=== PATIENT | male | born 1985 | race African-American/Black ===

== ENCOUNTER 2016-06-14 00:30 | Emergency (ER) | payer MEDICAID, SELFPAY ==
[~2016-06-14] VITALS: Ht 180.3 cm; Wt 70.3 kg
[2016-06-14] MEDS ORDERED: predniSONE 50 MG TAB PO ONE (01:30)
[2016-06-14] MEDS ORDERED: predniSONE 20 MG TAB PO ONE (01:30)
[2016-06-14] MEDS ORDERED: NAPROXEN 250 MG TAB PO ONE (01:30)
[2016-06-14] MEDS ORDERED: PRED20TA PO (01:32)
[2016-06-14] MEDS ORDERED: MOBI7.5T10 PO (01:33)
[2016-06-14] MEDS ORDERED: ZANA4TAB PO (02:29)
[2016-06-14] MEDS ORDERED: NORCO 5/325MG TABLET (BULK FOR ED) PO ONE (02:30)
[2016-06-14 02:40] VITALS: BP 121/68
--- NOTE | 2016-06-14 07:33 | REP ---
Clinical: Trauma . Technique: Internal rotation, external rotation, and Y view right shoulder . Findings: No acute fracture or dislocation. The acromioclavicular and glenohumeral joints are intact. No periarticular calcifications or degenerative changes are appreciated. Sub acromial space is normal. Surrounding soft tissues are unremarkable. Impression: Normal right shoulder radiographs. Signed by Nikhil Hawthorne MD 06/14/2016 07:25 A
--- NOTE | 2016-06-14 07:51 | REP ---
Clinical: Trauma . Technique: AP, lateral, bilateral oblique, and coned-down views. Findings: Alignment and lordosis is maintained. The vertebral bodies including transverse process and spinous processes are intact and normal. There is no evidence for acute fracture / compression injury or subluxation. No evidence for spondylolysis or spondylolisthesis. No significant degenerative change is noted. Impression: Normal lumbosacral spine radiograph series. Signed by Nikhil Hawthorne MD 06/14/2016 07:42 A
== END 2016-06-14 02:51 | disposition home or self-care (01) ==
LOC: M ED 01:39
DX: M54.5 Low back pain (principal); M25.511 Pain in right shoulder

== ENCOUNTER 2016-07-25 19:45 | Emergency (ER) | payer MEDICAID, OTHER, SELFPAY ==
[~2016-07-25] VITALS: Ht 180.3 cm; Wt 70.3 kg
[~2016-07-25 19:45] MED LIST: MOBI7.5T10 PO; PRED20TA PO; ZANA4TAB PO
[2016-07-25] MEDS ORDERED: FLUORESCEIN OPHTH 1 MG STRIP As Ordered ONE (21:39)
[2016-07-25] MEDS ORDERED: FLUORESCEIN OPHTH 1 MG STRIP OS ONE (21:45)
[2016-07-25 21:56] VITALS: BP 124/72
[2016-07-25] MEDS ORDERED: TOBRAMYCIN 0.3% OPHTH SOLN 5 ML OS ONE (22:00)
== END 2016-07-25 22:00 | disposition home or self-care (01) ==
LOC: M ED 21:43
DX: S05.02XA Injury of conjunctiva and corneal abrasion without foreign body, left eye, initial encounter (principal); X58.XXXA Exposure to other specified factors, initial encounter; Y92.89 Other specified places as the place of occurrence of the external cause; Y93.89 Activity, other specified; Y99.9 Unspecified external cause status

== ENCOUNTER 2016-08-07 16:38 | Emergency (ER) | payer MEDICAID, OTHER, SELFPAY ==
[~2016-08-07] VITALS: Ht 180.3 cm; Wt 70.3 kg
[2016-08-07] MEDS ORDERED: FLUORESCEIN OPHTH 1 MG STRIP OS ONE (19:45)
[2016-08-07] MEDS ORDERED: TETRACAINE 0.5% OPHTH SOLN 4ML OS ONE (19:45)
[2016-08-07] MEDS ORDERED: KETO5OPD OS (19:55)
[2016-08-07] MEDS ORDERED: KETOROLAC 0.5% OPHTH SOLN OS ONE (20:00)
[2016-08-07 20:02] VITALS: BP 120/68
== END 2016-08-07 20:06 | disposition home or self-care (01) ==
LOC: M ED 18:14
DX: H57.12 Ocular pain, left eye (principal); F17.200 Nicotine dependence, unspecified, uncomplicated

== ENCOUNTER 2017-03-09 16:29 | Emergency (ER) | payer OTHER, SELFPAY ==
[~2017-03-09] VITALS: Ht 180.3 cm; Wt 68.2 kg
[~2017-03-09 16:29] MED LIST changes: +KETO5OPD OS; +MOBI4TAB PO; -MOBI7.5T10 PO
[2017-03-09] MEDS ORDERED: IPRATROPIUM 0.5MG/ALBUTEROL 2.5MG INH SOL UD 3ML (DUONEB)(J7620) NEB ONE (17:00)
--- NOTE | 2017-03-09 17:13 | ECGEPIP ---
Stationary ECG Study [facility] - ED Test Date: 2017-03-09 Pat Name: SAMSON SURESH Department: Room: - Gender: M [employer]: megha : 1985 Requested By: JANEL Segovia Order Number: [id number] Reading MD: Debbie Villeda Measurements Intervals Waldo Rate: 63 P: 66 MS: 127 QRS: -12 QRSD: 89 T: 44 QT: 375 QTc: 386 Interpretive Statements SINUS RHYTHM PROBABLE EARLY REPOLARIZATION NO PRIOR FOR COMPARISON Electronically Signed On 03-09-2017 17:13:35 EST by Debbie Villeda
[2017-03-09 19:49] LABS: BASO % 0.4 % (0.0-1.0); EOS # 0.1 10^3/uL (0.0-0.50); EOS % 1.6 % (0.0-3.0); IMMATURE GRANULOCYTE % 0.4 % (0-0); LYMPH # 2.2 10^3/uL (1.5-4.5); LYMPH % 38.9 % (24.0-44.0); MEAN CORPUSCULAR HEMOGLOBIN 28.7 pg (27.0-33.0); MEAN CORPUSCULAR HGB CONC 32.3 g/dl (32.0-36.5); MEAN CORPUSCULAR VOLUME 88.9 fl (80.0-96.0); MONO # 0.5 10^3/uL (0.0-0.8); MONO % 8.7 % (0.0-5.0); NEUTROPHILS # 2.8 10^3/uL (1.8-7.7); PLATELET COUNT, AUTOMATED 280 10^3/uL (150-450); RED CELL DISTRIBUTION WIDTH 12.7 % (11.5-14.5); WHITE BLOOD COUNT 5.7 10^3/uL (4.0-10.0)
[2017-03-09 19:53] LABS: ANION GAP 8 MEQ/L (8-16); BLOOD UREA NITROGEN 11 MG/DL (7-18); CALCIUM LEVEL 8.8 MG/DL (8.5-10.1); CARBON DIOXIDE LEVEL 25 MEQ/L (21-32); CHLORIDE LEVEL 107 MEQ/L (98-107); CREATININE FOR GFR 0.95 MG/DL (0.70-1.30); GLOMERULAR FILTRATION RATE > 60.0 (>60); GLUCOSE, FASTING 89 MG/DL (70-105); POTASSIUM SERUM 4.3 MEQ/L (3.5-5.1); SODIUM LEVEL 140 MEQ/L (136-145)
[2017-03-09] MEDS ORDERED: GI COCKTAIL 50ML BTL(HYOSCYAMINE/MAALOX/LIDOCAINE VISCOUS)(1:3:1) PO ONE (20:00)
[2017-03-09] MEDS ORDERED: ISOVUE-370 76% 100ML VIAL (Q9967) As Ordered ONE (20:05)
[2017-03-09 21:16] VITALS: BP 118/87
--- NOTE | 2017-03-13 09:10 | REP ---
Clinical: Acute chest pain. Technique: Axial contrast enhanced images from the thoracic inlet to the upper abdomen using 100 ml Isovue 370 intravenous contrast material with coronal and sagittal re-formations. Findings: Satisfactory enhancement of the pulmonary vasculature is achieved and no filling defects are identified to suggest pulmonary embolus. Thoracic aorta is normal caliber without aneurysm or dissection. Heart and pericardium are normal. Bilateral lung bullard are well aerated and clear without acute pulmonary parenchymal consolidation or atelectasis. No nodule or mass lesion. No pleural effusion/reaction. No pneumothorax. No adenopathy. Impression: No evidence for pulmonary embolus. No acute pleuroparenchymal or mediastinal process. Signed by Nikhil Hawthorne MD 03/09/2017 08:22 P
== END 2017-03-09 21:46 | disposition home or self-care (01) ==
LOC: M ED 16:29
DX: R07.9 Chest pain, unspecified (principal); R06.02 Shortness of breath; M54.9 Dorsalgia, unspecified; Z82.49 Family history of ischemic heart disease and other diseases of the circulatory system; F17.210 Nicotine dependence, cigarettes, uncomplicated; F12.20 Cannabis dependence, uncomplicated
CPT/HCPCS: 36415; 71275; 80048; 82550; 82553; 85025; 93005; 93041; 94640; 94760; 99285; Q9967

== ENCOUNTER 2017-07-18 06:29 | Emergency (ER) | payer MEDICAID, OTHER ==
[2017-07-18] MEDS: AUGMENTIN 875 MG TAB PO (07:33)
[2017-07-18] MEDS: IBUPROFEN 800 MG TAB PO (07:34)
== END 2017-07-18 07:44 | disposition home or self-care (01) ==
LOC: M ED 06:29
DX: J02.9 Acute pharyngitis, unspecified (principal)
CPT/HCPCS: 87880

== ENCOUNTER → 2018-01-04 | Outpatient (CLI) | payer OTHER, MEDICAID ==
[2018-01-04 16:23] LABS: BASO % 0.5 % (0.0-1.0); EOS % 0.6 % (0.0-3.0); HEMATOCRIT 45.8 % (42.0-52.0); HEMOGLOBIN 14.8 g/dl (13.5-17.5); IMMATURE GRANULOCYTE % 0.3 % (0-3.0); LYMPH # 1.6 10^3/uL (1.5-4.5); LYMPH % 23.7 % (24.0-44.0); MEAN CORPUSCULAR HEMOGLOBIN 28.7 pg (27.0-33.0); MEAN CORPUSCULAR HGB CONC 32.3 g/dl (32.0-36.5); MEAN CORPUSCULAR VOLUME 88.9 fl (80.0-96.0); MONO # 0.6 10^3/uL (0.0-0.8); MONO % 8.3 % (0.0-5.0); NEUTROPHILS # 4.4 10^3/uL (1.8-7.7); NEUTROPHILS % 66.6 % (36.0-66.0); PLATELET COUNT, AUTOMATED 305 10^3/uL (150-450); RED BLOOD COUNT 5.15 10^6/uL (4.30-6.10); RED CELL DISTRIBUTION WIDTH 13.5 % (11.5-14.5); WHITE BLOOD COUNT 6.7 10^3/uL (4.0-10.0)
[2018-01-04 16:34] LABS: ALBUMIN 4.4 GM/DL (3.2-5.2); ALBUMIN/GLOBULIN RATIO 1.38 (1.00-1.93); ALKALINE PHOSPHATASE 91 U/L (45-117); ALT/SGPT 48 U/L (12-78); ANION GAP 4 MEQ/L (8-16); AST/SGOT 38 U/L (7-37); BILIRUBIN,DIRECT < 0.1 MG/DL (0.0-0.2); BILIRUBIN,TOTAL 0.2 MG/DL (0.2-1.0); BLOOD UREA NITROGEN 12 MG/DL (7-18); CALCIUM LEVEL 9.5 MG/DL (8.5-10.1); CARBON DIOXIDE LEVEL 29 MEQ/L (21-32); CHLORIDE LEVEL 108 MEQ/L (98-107); CREATININE FOR GFR 0.87 MG/DL (0.70-1.30); GLOMERULAR FILTRATION RATE > 60.0 (>60); GLUCOSE, FASTING 100 MG/DL (70-100); PHOSPHORUS LEVEL 2.9 MG/DL (2.5-4.9); POTASSIUM SERUM 5.1 MEQ/L (3.5-5.1); SODIUM LEVEL 141 MEQ/L (136-145); TOTAL PROTEIN 7.6 GM/DL (6.4-8.2)
[2018-01-04 17:22] LABS: ERYTHROCYTE SEDIMENTATION RATE 2 mm/hr (0-15)
[2018-01-04 18:05] LABS: CHLAMYDIA DNA AMPLIFICATION NEGATIVE (NEGATIVE); GC DNA AMPLIFICATION NEGATIVE (NEGATIVE)
== END ==
LOC: M WUC 11:50
DX: R31.9 Hematuria, unspecified (principal); R10.815 Periumbilic abdominal tenderness
CPT/HCPCS: 80076

== ENCOUNTER → 2018-01-21 | Outpatient (REF) | payer OTHER ==
[2018-01-21 16:38] LABS: APPEARANCE, URINE CLEAR (CLEAR); BACTERIA, URINE AUTO NEGATIVE (NEGATIVE); BILIRUBIN, URINE AUTO NEGATIVE (NEGATIVE); BLOOD, URINE BLOOD NEGATIVE (NEGATIVE); COLOR, URINE YELLOW (YELLOW); GLUCOSE, URINE (UA) AUTO NEGATIVE (NEGATIVE); KETONE, URINE AUTO NEGATIVE (NEGATIVE); LEUKOCYTE ESTERASE, URINE AUTO NEGATIVE (NEGATIVE); NITRITE, URINE AUTO NEGATIVE (NEGATIVE); PROTEIN, URINE AUTO NEGATIVE (NEGATIVE); RBC, URINE AUTO 2 /HPF (0-3); SPECIFIC GRAVITY URINE AUTO 1.013 (1.002-1.035); SQUAMOUS EPITHELIAL CELL UR AU 0 /HPF (0-6); UROBILINOGEN, URINE AUTO 0.2 mg/dL (0.0-2.0); WBC, URINE AUTO 0 /HPF (0-3)
== END ==
LOC: M SFHCPLAZ 15:38
DX: R31.0 Gross hematuria (principal)

== ENCOUNTER 2018-08-24 23:17 | Emergency (ER) | payer MEDICAID, OTHER, SELFPAY ==
[~2018-08-24] VITALS: Ht 180.3 cm; Wt 79.5 kg
[~2018-08-24 23:17] MED LIST changes: +AUGM875T28 PO; +KETO0.5S2 OS; -KETO5OPD OS
[2018-08-24] MEDS ORDERED: NS 1,000 ML IV ONE (23:45)
[2018-08-25] MEDS ORDERED: KETOROLAC 30 MG/ML VIAL (J1885) IV ONE ×2 (00:15→02:15)
[2018-08-25 00:34] LABS: BASO % 0.3 % (0.0-1.0); EOS # 0.1 10^3/uL (0.0-0.50); EOS % 1.6 % (0.0-3.0); HEMATOCRIT 43.8 % (42.0-52.0); HEMOGLOBIN 14.3 g/dl (13.5-17.5); LYMPH # 2.8 10^3/uL (1.5-4.5); LYMPH % 32.6 % (24.0-44.0); MEAN CORPUSCULAR HEMOGLOBIN 28.7 pg (27.0-33.0); MEAN CORPUSCULAR HGB CONC 32.6 g/dl (32.0-36.5); MEAN CORPUSCULAR VOLUME 87.8 fl (80.0-96.0); MONO # 0.6 10^3/uL (0.0-0.8); MONO % 7.2 % (0.0-5.0); NEUTROPHILS % 58.1 % (36.0-66.0); PLATELET COUNT, AUTOMATED 306 10^3/uL (150-450); RED BLOOD COUNT 4.99 10^6/uL (4.30-6.10); WHITE BLOOD COUNT 8.7 10^3/uL (4.0-10.0)
[2018-08-25 00:48] LABS: ALT/SGPT 35 U/L (12-78); BILIRUBIN,DIRECT < 0.1 MG/DL (0.0-0.2); BILIRUBIN,TOTAL 0.1 MG/DL (0.2-1.0); BLOOD UREA NITROGEN 15 MG/DL (7-18); CALCIUM LEVEL 8.7 MG/DL (8.5-10.1); CARBON DIOXIDE LEVEL 27 MEQ/L (21-32); CHLORIDE LEVEL 107 MEQ/L (98-107); CREATININE FOR GFR 1.08 MG/DL (0.70-1.30); GLOMERULAR FILTRATION RATE > 60.0 (>60); GLUCOSE, FASTING 100 MG/DL (70-100); LIPASE 1270 U/L (73-393); POTASSIUM SERUM 4.2 MEQ/L (3.5-5.1); SODIUM LEVEL 140 MEQ/L (136-145); TOTAL PROTEIN 7.6 GM/DL (6.4-8.2)
[2018-08-25 01:49] VITALS: BP 110/54
--- NOTE | 2018-08-25 01:58 | REPVR ---
EXAM: CT Abdomen and Pelvis Without Contrast EXAM DATE/TIME: 08/25/2018 12:16 AM CLINICAL HISTORY: 33 years old, male; Left flank pain. TECHNIQUE: Imaging protocol: Axial computed tomography images of the abdomen and pelvis without contrast. Coronal and sagittal reformatted images were created and reviewed. Radiation optimization: All CT scans at this facility use at least one of these dose optimization techniques: automated exposure control; mA and/or kV adjustment per patient size (includes targeted exams where dose is matched to clinical indication); or iterative reconstruction. COMPARISON: CR Spine. Lumbosacral, complete 06/14/2016 1:42 AM FINDINGS: Lungs: The imaged lung bases are clear. Heart: No cardiomegaly or pericardial effusion is noted. ABDOMEN: Liver: Unremarkable. No liver lesion is seen. The contour of the liver is smooth. No hepatomegaly is noted. Gallbladder and bile ducts: No calcified gallstones are seen. No gallbladder wall thickening, pericholecystic fluid, or pericholecystic inflammatory changes are identified. No dilation of the intrahepatic or extrahepatic bile ducts is noted. Pancreas: Unremarkable. No ductal dilation. Spleen: Unremarkable. No splenomegaly. Adrenals: Normal. No mass. Kidneys and ureters: The kidneys are unremarkable. No renal lesion is identified. No calculi are seen in the kidneys or ureters. There is no hydronephrosis or hydroureter. Stomach and bowel: There is no evidence for a bowel obstruction, diverticulosis, diverticulitis, colitis, pneumatosis intestinalis, intussusception, volvulus, or perforated viscus. Appendix: The retrocecal appendix is normal. There is no evidence for appendicitis. PELVIS: Bladder: The partially distended urinary bladder is unremarkable. No stones or masses are seen in the bladder. Reproductive: The prostate gland and seminal vesicles are unremarkable. ABDOMEN and PELVIS: Intraperitoneal space: Normal. No free air. No fluid collection. Bones/joints: There is no fracture or dislocation. There is a 9 mm radiolucent lesion with a sclerotic rim in the right iliac bone adjacent to the right sacroiliac joint, which has a benign appearance and is stable compared to the prior lumbar spine x-rays on 06/14/2016. Incidental note is also made of a small bone island in the right side of the pubic symphysis. There is a lumbosacral transitional vertebra that will be designated as L5 above the last well-defined intervertebral disc, and there is broadening of the left transverse process of the lumbosacral transitional vertebra, which forms a pseudoarticulation with the left side of the sacrum (Castellvi type IIa lumbosacral transitional vertebra) that stabilizes the level below the lumbosacral transitional vertebra and leads to the propensity for increased mobility and degenerative disc disease at the level above the lumbosacral transitional vertebra (Bertolotti's syndrome). At the L4-L5 level, there is a left paracentral protrusion that potentially posteriorly displaces the left L5 nerve in the left lateral recess and causes severe stenosis of the left lateral recess. Soft tissues: There is a tiny fat containing umbilical hernia. Vasculature: No abdominal aortic aneurysm. Lymph nodes: Normal. No enlarged lymph nodes. IMPRESSION: 1. L4-L5: Left paracentral protrusion that potentially posteriorly displaces the left L5 nerve in the left lateral recess and causes severe stenosis of the left lateral recess. 2. 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 3. No stones in the kidneys, ureters, or urinary bladder. No hydronephrosis or hydroureter. Electronically signed by: Orlando Urias On 08/25/2018 01:57:35 AM
[2018-08-25] MEDS ORDERED: TRAM50TA2 PO (02:08)
[2018-08-25] MEDS ORDERED: traMADol 50 MG TAB PO ONE (02:15)
--- NOTE | 2018-08-27 12:42 | ED PDOC ---
Post-Departure Follow-Up dr payne faxed formal report of ct abd/p for fu Gali Dias MD Aug 27, 2018 12:42
== END 2018-08-25 02:27 | disposition home or self-care (01) ==
LOC: M ED 23:17
DX: K85.90 Acute pancreatitis without necrosis or infection, unspecified (principal); M48.061 Spinal stenosis, lumbar region without neurogenic claudication
CPT/HCPCS: 74176; 80048; 80076; 81001; 83690; 85025; 96374; 99284; J1885

== ENCOUNTER 2018-08-30 21:07 | Emergency (ER) | payer MEDICAID, OTHER, SELFPAY ==
[~2018-08-30] VITALS: Ht 180.3 cm; Wt 79.5 kg
[~2018-08-30 21:07] MED LIST changes: +TRAM50TA2 PO
[2018-08-30 23:37] LABS: BASO % 0.4 % (0.0-1.0); EOS # 0.1 10^3/uL (0.0-0.50); EOS % 1.2 % (0.0-3.0); HEMATOCRIT 45.1 % (42.0-52.0); HEMOGLOBIN 14.8 g/dl (13.5-17.5); LYMPH # 3.1 10^3/uL (1.5-4.5); LYMPH % 33.3 % (24.0-44.0); MEAN CORPUSCULAR HEMOGLOBIN 29.1 pg (27.0-33.0); MEAN CORPUSCULAR HGB CONC 32.8 g/dl (32.0-36.5); MEAN CORPUSCULAR VOLUME 88.6 fl (80.0-96.0); MONO # 0.7 10^3/uL (0.0-0.8); MONO % 7.8 % (0.0-5.0); NEUTROPHILS # 5.3 10^3/uL (1.8-7.7); PLATELET COUNT, AUTOMATED 327 10^3/uL (150-450); RED BLOOD COUNT 5.09 10^6/uL (4.30-6.10); WHITE BLOOD COUNT 9.3 10^3/uL (4.0-10.0)
[2018-08-30 23:53] LABS: ALT/SGPT 27 U/L (12-78); AMYLASE 217 U/L (25-115); BILIRUBIN,DIRECT < 0.1 MG/DL (0.0-0.2); BILIRUBIN,TOTAL 0.2 MG/DL (0.2-1.0); BLOOD UREA NITROGEN 12 MG/DL (7-18); CALCIUM LEVEL 8.9 MG/DL (8.5-10.1); CARBON DIOXIDE LEVEL 30 MEQ/L (21-32); CHLORIDE LEVEL 104 MEQ/L (98-107); CREATININE FOR GFR 1.02 MG/DL (0.70-1.30); GLOMERULAR FILTRATION RATE > 60.0 (>60); GLUCOSE, FASTING 85 MG/DL (70-100); LIPASE 876 U/L (73-393); POTASSIUM SERUM 4.1 MEQ/L (3.5-5.1); SODIUM LEVEL 138 MEQ/L (136-145); TOTAL PROTEIN 7.5 GM/DL (6.4-8.2)
[2018-08-30 23:59] VITALS: BP 122/89
[2018-08-31] MEDS ORDERED: METHOCARBAMOL 750 MG TAB PO ONE (00:15)
[2018-08-31] MEDS ORDERED: KETOROLAC 60 MG/2 ML VIAL (J1885) IM ONE (00:15)
[2018-08-31] MEDS ORDERED: ROBA500T PO (00:25)
[2018-08-31] MEDS ORDERED: MEDR4TAB PO (00:25)
== END 2018-08-31 00:31 | disposition home or self-care (01) ==
LOC: M ED 21:07
DX: M54.42 Lumbago with sciatica, left side (principal); R74.8 Abnormal levels of other serum enzymes; Z79.891 Long term (current) use of opiate analgesic
CPT/HCPCS: 36415; 80048; 80076; 82150; 83690; 85025; 96372; 99283; J1885

== ENCOUNTER 2018-09-04 18:32 | Emergency (ER) | payer MEDICAID ==
[~2018-09-04] VITALS: Ht 180.3 cm; Wt 79.5 kg
[~2018-09-04 18:32] MED LIST changes: +MEDR4TAB PO; +ROBA500T PO
[2018-09-04] MEDS ORDERED: NS 1,000 ML IV ONE (19:45)
[2018-09-04] MEDS ORDERED: KETOROLAC 30 MG/ML VIAL (J1885) IV ONE (19:45)
[2018-09-04 20:17] LABS: BASO % 0.3 % (0.0-1.0); EOS # 0.1 10^3/uL (0.0-0.50); EOS % 0.6 % (0.0-3.0); HEMATOCRIT 45.1 % (42.0-52.0); HEMOGLOBIN 14.8 g/dl (13.5-17.5); LYMPH # 2.6 10^3/uL (1.5-4.5); MEAN CORPUSCULAR HEMOGLOBIN 28.5 pg (27.0-33.0); MEAN CORPUSCULAR HGB CONC 32.8 g/dl (32.0-36.5); MEAN CORPUSCULAR VOLUME 86.9 fl (80.0-96.0); MONO # 0.7 10^3/uL (0.0-0.8); MONO % 5.6 % (0.0-5.0); NEUTROPHILS # 9.6 10^3/uL (1.8-7.7); NEUTROPHILS % 73.3 % (36.0-66.0); PLATELET COUNT, AUTOMATED 349 10^3/uL (150-450); RED BLOOD COUNT 5.19 10^6/uL (4.30-6.10); WHITE BLOOD COUNT 13.1 10^3/uL (4.0-10.0)
[2018-09-04 20:46] LABS: ALBUMIN 4.1 GM/DL (3.2-5.2); ALT/SGPT 28 U/L (12-78); BILIRUBIN,DIRECT < 0.1 MG/DL (0.0-0.2); BILIRUBIN,TOTAL 0.2 MG/DL (0.2-1.0); BLOOD UREA NITROGEN 12 MG/DL (7-18); CALCIUM LEVEL 9.3 MG/DL (8.5-10.1); CARBON DIOXIDE LEVEL 27 MEQ/L (21-32); CHLORIDE LEVEL 105 MEQ/L (98-107); CREATININE FOR GFR 1.09 MG/DL (0.70-1.30); GLOMERULAR FILTRATION RATE > 60.0 (>60); GLUCOSE, FASTING 92 MG/DL (70-100); LIPASE 354 U/L (73-393); POTASSIUM SERUM 3.9 MEQ/L (3.5-5.1); SODIUM LEVEL 143 MEQ/L (136-145)
[2018-09-04 21:13] VITALS: BP 126/73
[2018-09-04] MEDS ORDERED: CYCL10TA PO (21:52)
== END 2018-09-04 21:56 | disposition home or self-care (01) ==
LOC: EDBD 18:32 → M ED 18:32
DX: M54.5 Low back pain (principal)
CPT/HCPCS: 80048; 80076; 83690; 85025; 96374; 96375; 99284; J1885; J3360

== ENCOUNTER 2019-11-20 22:40 | Emergency (ER) | payer OTHER, SELFPAY ==
[~2019-11-20] VITALS: Ht 180.3 cm; Wt 87.6 kg
[~2019-11-20 22:40] MED LIST changes: +CYCL-707 PO
[2019-11-20] MEDS ORDERED: LIDOCAINE 4% CREAM 5GM (LMX4) TOP ONE (23:15)
[2019-11-20] MEDS ORDERED: NAPROXEN 250 MG TAB PO ONE (23:15)
--- NOTE | 2019-11-20 23:34 | REPVR ---
PROCEDURE INFORMATION: Exam: XR Left Knee Exam date and time: 11/20/2019 11:16 PM Age: 34 years old Clinical indication: Other: Lateral knee pain, swelling, no madalyn TECHNIQUE: Imaging protocol: XR Left knee. Views: 4 or more views. COMPARISON: No relevant prior studies available. FINDINGS: Bones/joints: There may be a tiny 4 mm chip type fracture at the lateral patellar facet seen only on the sunrise view. Suspect mild soft tissue swelling at this location. No lucent fracture line is seen of the distal femur or tibia. There may be a small amount of joint fluid. IMPRESSION: Possible tiny 4 mm chip type fracture of the lateral patellar facet. Electronically signed by: Sherman Baltazar On 11/20/2019 23:34:54 PM
[2019-11-20] MEDS ORDERED: NAPR-837 PO (23:47)
[2019-11-21 00:21] VITALS: BP 130/68
== END 2019-11-21 00:22 | disposition home or self-care (01) ==
LOC: M ED 22:40
DX: M25.562 Pain in left knee (principal)

== ENCOUNTER 2020-03-20 13:47 | Emergency (ER) | payer OTHER ==
[~2020-03-20] VITALS: Ht 180.3 cm; Wt 90.6 kg
[~2020-03-20 13:47] MED LIST changes: +NAPR-837 PO
[2020-03-20] MEDS ORDERED: FLUTISP (13:56)
[2020-03-20] MEDS ORDERED: ALBU8.5H (13:56)
[2020-03-20] MEDS ORDERED: FLUORESCEIN OPHTH 1 MG STRIP OS ONE (14:30)
[2020-03-20] MEDS ORDERED: PROPARACAINE 0.5% OPHTH SOL 15ML OS ONE (14:30)
[2020-03-20] MEDS ORDERED: CYCL1SOL OS (15:06)
[2020-03-20] MEDS ORDERED: CYCLOPENTOLATE 1% OPHTH SOLN 2 ML BTL OS ONE (15:15)
[2020-03-20 15:26] VITALS: BP 143/76
== END 2020-03-20 15:26 | disposition home or self-care (01) ==
LOC: M ED 13:47
DX: H20.9 Unspecified iridocyclitis (principal); J45.909 Unspecified asthma, uncomplicated

== ENCOUNTER → 2020-05-19 | Outpatient (CLI) | payer OTHER ==
[~2020-05-19] MED LIST changes: +ALBU8.5H; +CYCL1SOL OS; +FLUTISP
[2020-05-19 18:03] LABS: BASO % 0.6 % (0.0-1.0); EOS # 0.1 10^3/uL (0.0-0.5); EOS % 1.4 % (0.0-3.0); HEMOGLOBIN 14.8 g/dl (13.5-17.5); LYMPH # 2.2 10^3/uL (1.5-5.0); LYMPH % 33.7 % (24.0-44.0); MEAN CORPUSCULAR HEMOGLOBIN 28.7 pg (27.0-33.0); MEAN CORPUSCULAR HGB CONC 32.2 g/dl (32.0-36.5); MEAN CORPUSCULAR VOLUME 89.3 fl (80.0-96.0); MONO # 0.5 10^3/uL (0.0-0.8); NEUTROPHILS # 3.7 10^3/uL (1.5-8.5); PLATELET COUNT, AUTOMATED 326 10^3/uL (150-450); RED BLOOD COUNT 5.15 10^6/uL (4.30-6.10); WHITE BLOOD COUNT 6.5 10^3/uL (4.0-10.0)
[2020-05-19 18:23] LABS: RHEUMATOID FACTOR QUANT < 10.0 IU/ML (<15.0)
[2020-05-19 19:01] LABS: ERYTHROCYTE SEDIMENTATION RATE 3 mm/hr (0-15)
== END ==
LOC: M LAB 16:47
PROVIDERS: ATTEND Physician Assistant
DX: H20.9 Unspecified iridocyclitis (principal)

== ENCOUNTER → 2020-09-07 | Outpatient (REF) | payer OTHER ==
[2020-09-07 11:42] LABS: APPEARANCE, URINE CLEAR (CLEAR); BACTERIA, URINE AUTO NEGATIVE (NEGATIVE); BILIRUBIN, URINE AUTO NEGATIVE (NEGATIVE); BLOOD, URINE BLOOD NEGATIVE (NEGATIVE); COLOR, URINE STRAW (YELLOW); GLUCOSE, URINE (UA) AUTO NEGATIVE (NEGATIVE); KETONE, URINE AUTO NEGATIVE (NEGATIVE); LEUKOCYTE ESTERASE, URINE AUTO NEGATIVE (NEGATIVE); MUCUS, URINE SMALL (NEGATIVE); NITRITE, URINE AUTO NEGATIVE (NEGATIVE); PROTEIN, URINE AUTO NEGATIVE (NEGATIVE); RBC, URINE AUTO 1 /HPF (0-3); SPECIFIC GRAVITY URINE AUTO 1.008 (1.002-1.035); SQUAMOUS EPITHELIAL CELL UR AU 0 /HPF (0-6); UROBILINOGEN, URINE AUTO 0.2 mg/dL (0.0-2.0); WBC, URINE AUTO 0 /HPF (0-3)
[2020-09-07 11:43] LABS: BASO % 0.5 % (0.0-1.0); EOS # 0.2 10^3/uL (0.0-0.5); EOS % 2.6 % (0.0-3.0); HEMATOCRIT 47.9 % (42.0-52.0); HEMOGLOBIN 14.7 g/dl (13.5-17.5); LYMPH # 1.6 10^3/uL (1.5-5.0); LYMPH % 26.7 % (24.0-44.0); MEAN CORPUSCULAR HEMOGLOBIN 27.8 pg (27.0-33.0); MEAN CORPUSCULAR HGB CONC 30.7 g/dl (32.0-36.5); MEAN CORPUSCULAR VOLUME 90.7 fl (80.0-96.0); MONO # 0.5 10^3/uL (0.0-0.8); MONO % 8.9 % (2.0-8.0); NEUTROPHILS # 3.7 10^3/uL (1.5-8.5); PLATELET COUNT, AUTOMATED 323 10^3/uL (150-450); RED BLOOD COUNT 5.28 10^6/uL (4.30-6.10)
[2020-09-07 12:06] LABS: CREATININE,RANDOM URINE 49.1 MG/DL; TOTAL PROTEIN,RANDOM URINE 10.8 MG/DL (0.0-12.0)
[2020-09-07 12:14] LABS: ERYTHROCYTE SEDIMENTATION RATE 2 mm/hr (0-15)
[2020-09-07 12:45] LABS: ALT/SGPT 44 U/L (12-78); BILIRUBIN,TOTAL 0.2 MG/DL (0.2-1.0); BLOOD UREA NITROGEN 9 MG/DL (7-18); CALCIUM LEVEL 9.7 MG/DL (8.5-10.1); CARBON DIOXIDE LEVEL 30 MEQ/L (21-32); CHLORIDE LEVEL 107 MEQ/L (98-107); COMPLEMENT C3 113 MG/DL (90-180); COMPLEMENT C4 31 MG/DL (10-40); CREATININE FOR GFR 0.86 MG/DL (0.70-1.30); GLOMERULAR FILTRATION RATE > 60.0 (>60); GLUCOSE, FASTING 90 MG/DL (70-100); POTASSIUM SERUM 4.3 MEQ/L (3.5-5.1); SODIUM LEVEL 139 MEQ/L (136-145); TOTAL PROTEIN 7.4 GM/DL (6.4-8.2)
== END ==
LOC: M SFHCRHEU 08:34
PROVIDERS: ATTEND Internal Medicine Rheumatology
DX: H20.9 Unspecified iridocyclitis (principal); H15.102 Unspecified episcleritis, left eye; H16.203 Unspecified keratoconjunctivitis, bilateral; R76.8 Other specified abnormal immunological findings in serum; R06.02 Shortness of breath; M25.50 Pain in unspecified joint

== ENCOUNTER → 2020-11-02 | Outpatient (CLI) | payer OTHER ==
--- NOTE | 2020-11-02 16:34 | REP ---
INDICATION: OTHER SPECIFIED ABNORMAL IMMUNOLOGICAL FINDINGS IN SERUM. COMPARISON: 05/17/2005 TECHNIQUE: PA and lateral FINDINGS: There is evidence of pulmonary vascular redistribution. The heart is not enlarged. Lung bullard are otherwise clear. The pleural angles are sharp. The osseous structures are within normal limits. IMPRESSION: Pulmonary vascular redistribution of uncertain etiology but consistent with changes due to early interstitial edema. Follow-up is suggested. <Electronically signed by Julian Pino > 11/02/20 [id number]
== END ==
LOC: M LAB 15:47
PROVIDERS: ATTEND Internal Medicine Rheumatology
DX: R76.8 Other specified abnormal immunological findings in serum (principal); R06.02 Shortness of breath

== ENCOUNTER 2021-01-20 09:43 | Emergency (ER) | payer OTHER ==
[~2021-01-20] VITALS: Ht 180.3 cm; Wt 84.1 kg
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
--- OUTSIDE RECORDS SUMMARY | 2021-01-20 09:48 | CCD ---
Author Author [facility] Organization [facility] Address Unknown Phone Unavailable Care Team Providers Care Business Office Specialist Name Role Phone MCELHERAN, SILVER PA Unavailable Unavailable MCELHERAN, SILVER PA Unavailable Unavailable MCELHERAN, SILVER PA Unavailable Unavailable MCELHERAN, SILVER PA Unavailable Unavailable MCELHERAN, SILVER PA Unavailable Unavailable MCELHERAN, SILVER PA Unavailable Unavailable MCELHERAN, SILVER PA Unavailable Unavailable MCELHERAN, SILVER PA Unavailable Unavailable MCELHERAN, SILVER PA Unavailable Unavailable MCELHERAN, SILVER PA Unavailable Unavailable MCELHERAN, SILVER PA Unavailable Unavailable MCELHERAN, SILVER PA Unavailable Unavailable MCELHERAN, SILVER PA Unavailable Unavailable MCELHERAN, SILVER PA Unavailable Unavailable MCELHERAN, SILVER PA Unavailable Unavailable MCELHERAN, SILVER PA Unavailable Unavailable MCELHERAN, SILVER PA Unavailable Unavailable MCELHERAN, SILVER PA Unavailable Unavailable MCELAN, SILVER PA Unavailable Unavailable MCELHERAN, SILVER PA Unavailable Unavailable MCELHERAN, SILVER PA Unavailable Unavailable MCELHERAN, SILVER PA Unavailable Unavailable MCELHERAN, SILVER PA Unavailable Unavailable MCELHERAN, SILVER PA Unavailable Unavailable MCELHERAN, SILVER PA Unavailable Unavailable MCELHERAN, SILVER PA Unavailable Unavailable MCELHERAN, SILVER PA Unavailable Unavailable MCELHERAN, SILVER PA Unavailable Unavailable MCELHERAN, SILVER PA Unavailable Unavailable VaneenenaamAdamaris MD Unavailable Unavailable VaneenenaamAdamaris MD Unavailable Unavailable VaneenenaamAdamaris MD Unavailable Unavailable VaneenenaamAdamaris MD Unavailable Unavailable VaneenenaamAdamaris MD Unavailable Unavailable Vaneenenaam, Adamaris Dennis MD Unavailable Unavailable VaneenenaamAdamaris MD Unavailable Unavailable VaneenenaamAdamaris MD Unavailable Unavailable VaneenenaamAdamaris MD Unavailable Unavailable VaneenenaamAdamaris MD Unavailable Unavailable Vaneenenaam, Adamaris Dennis MD Unavailable Unavailable Vaneenenaam, Adamaris Dennis MD Unavailable Unavailable Vaneenenaam, Adamaris Dennis MD Unavailable Unavailable VaneendaxamAdamaris MD Unavailable Unavailable Vaneenenaam, Adamaris Dennis MD Unavailable Unavailable Vaneenenaam, Adamaris Dennis MD Unavailable Unavailable Vaneenenaam, Adamaris Dennis MD Unavailable Unavailable Vaneenenaam, Adamaris Dennis MD Unavailable Unavailable Vaneenenaam, Adamaris Dennis MD Unavailable Unavailable VaneendaxamAdamaris MD Unavailable Unavailable Vaneendaxam, Adamaris Dennis MD Unavailable Unavailable VaneenenaamAdamaris MD Unavailable Unavailable Vaneenenaam, Adamaris Dennis MD Unavailable Unavailable VaneenenaamAdamaris MD Unavailable Unavailable VaneenenaamAdamaris MD Unavailable Unavailable VaneendaxamAdamaris MD Unavailable Unavailable VaneenenaamAdamaris MD Unavailable Unavailable VanvincentamAdamaris MD Unavailable Unavailable VanvincentamAdamaris MD Unavailable Unavailable VanvincentamAdamaris MD Unavailable Unavailable VanvincentamAdamaris MD Unavailable Unavailable VaneendaxamAdamaris MD Unavailable Unavailable VanvincentamAdamaris MD Unavailable Unavailable VanvincentamAdamaris MD Unavailable Unavailable VanAdamaris funes MD Unavailable Unavailable VanvincentamAdamaris MD Unavailable Unavailable VanvincentamAdamaris MD Unavailable Unavailable VaneendaxamAdamaris MD Unavailable Unavailable VanAdamaris funes MD Unavailable Unavailable VanAdamaris funes MD Unavailable Unavailable VanAdamaris funes MD Unavailable Unavailable VanvincentamAdamaris MD Unavailable Unavailable VanvincentamAdamaris MD Unavailable Unavailable VaneendaxamAdamaris MD Unavailable Unavailable VanvincentamAdamaris MD Unavailable Unavailable VanAdamaris ufnes MD Unavailable Unavailable Mary Hansen PA-C Unavailable Unavailable Mary Hansen-C Unavailable Unavailable Mary Hansen PA-C Unavailable Unavailable Hansen, M Christopher PA-C Unavailable Unavailable Hansen, M Christopher PA-C Unavailable Unavailable Hansen, M Christopher PA-C Unavailable Unavailable Hansen, M Christopher PA-C Unavailable Unavailable Hansen, M Christopher PA-C Unavailable Unavailable Hansen, M Christopher PA-C Unavailable Unavailable Hansen, M Christopher PA-C Unavailable Unavailable Hansen, M Christopher PA-C Unavailable Unavailable Hansen, M Christopher PA-C Unavailable Unavailable Hansen, M Christopher PA-C Unavailable Unavailable Hansen, M Christopher PA-C Unavailable Unavailable Hansen, M Christopher PA-C Unavailable Unavailable Hansen, M Christopher PA-C Unavailable Unavailable Hansen, M Christopher PA-C Unavailable Unavailable Hansen, M Christopher PA-C Unavailable Unavailable Hansen, M Christopher PA-C Unavailable Unavailable Hansen, M Christopher PA-C Unavailable Unavailable Hansen, M Christopher PA-C Unavailable Unavailable Hansen, M Christopher PA-C Unavailable Unavailable Hansen, M Christopher PA-C Unavailable Unavailable Hansen, M Christopher PA-C Unavailable Unavailable Hansen, M Christopher PA-C Unavailable Unavailable Hansen, M Christopher PA-C Unavailable Unavailable Re-disclosure Warning The records that you are about to access may contain information from federally-assisted alcohol or drug abuse programs. If such information is present, then the following federally mandated warning applies: This information has been disclosed to you from records protected by federal confidentiality rules (42 CFR part 2). The federal rules prohibit you from making any further disclosure of this information unless further disclosure is expressly permitted by the written consent of the person to whom it pertains or as otherwise permitted by 42 CFR part 2. A general authorization for the release of medical or other information is NOT sufficient for this purpose. The Federal rules restrict any use of the information to criminally investigate or prosecute any alcohol or drug abuse patient.The records that you are about to access may contain highly sensitive health information, the redisclosure of which is protected by Article 27-F of the [facility] Public Health law. If you continue you may have access to information: Regarding HIV / AIDS; Provided by facilities licensed or operated by the [facility] Office of Mental Health; or Provided by the [facility] Office for People With Developmental Disabilities. If such information is present, then the following [facility] mandated warning applies: This information has been disclosed to you from confidential records which are protected by state law. State law prohibits you from making any further disclosure of this information without the specific written consent of the person to whom it pertains, or as otherwise permitted by law. Any unauthorized further disclosure in violation of state law may result in a fine or detention sentence or both. A general authorization for the release of medical or other information is NOT sufficient authorization for further disc losure. Family History Family Member Name Family Member Gender Family Member Status Date o f Status Description Data Source(s) Unknown Male Problem MEDENT ([facility]) Unknown Unknown Problem MEDENT ([facility]) Encounters Encounter Providers Location Date Indications Data Source(s ) Outpatient 01/17/2021 08:33:34 AM EDT - 021 08:40:28 AM EDT [facility] ([facility]) [place] [address] [address] 01/11/2021 12:00:00 AM EDT eCW1 ([facility]) [place] [address] [address] 11/02/2020 12:00:00 AM EDT eCW1 ([facility]) [place] [address] [address] 11/01/2020 12:00:00 AM EDT eCW1 ([facility]) Outpatient Attender: Lance Hansen PA-C 10/12/2020 04:17:12 PM EDT - 10/12/2020 06:04:38 PM EDT [facility] ([facility]) [place] [address] [address] 10/05/2020 12:00:00 AM EDT eCW1 ([facility]) [place] [address] [address] 09/07/2020 12:00:00 AM EDT eCW1 ([facility]) [place] [address] [address] 09/07/2020 12:00:00 AM EDT [facility] [place] [address] [address] 06/14/2020 12:00:00 AM EDT [facility]CW1 [facility] [place] [address] [address] 06/11/2020 12:00:00 AM EDT eCW1 [facility]) [place] [address] [address] 05/13/2020 12:00:00 AM EST eCW1 ([facility]) [place] [address] [address] 05/11/2020 12:00:00 AM EST eCW1 ([facility]) [place] [address] [address] 04/19/2020 12:00:00 AM EST [facility]CW1 [facility]) [place] [address] [address] 02/18/2020 12:00:00 AM EST eCW1 [facility]) [place] [address] [address] 02/16/2020 12:00:00 AM EST eCW1 [facility]) Outpatient Attender: SILVER WAYNE Physical Therapy 01/16/2020 01:45:00 PM EDT MEDENT ([facility]) Outpatient Attender: Adamaris Pitts MD Physical Therap y 12/23/2019 09:45:00 AM EDT MEDENT ([facility]) Outpatient Attender: Adamaris Pitts MD Physical Therap y 11/27/2019 09:30:00 AM EDT MEDENT ([facility]) Medications Medication Brand Name Start Date Product Form Dose Route Admi nistrative Instructions Pharmacy Instructions Status Indications Reaction Description Data Source(s) 5 % 01/13/2021 12:00:00 AM EDT dropperette 60 INSTILL ONE DROP IN EACH EYE TWO TIMES A DAY INSTILL ONE DROP IN EACH EYE TWO TIMES A DAY SOLD: 01/14/2021 [facility] 1 % 07/02/2020 12:00:00 AM EDT drops,suspension 10 INSTILL ON DROP INTO LEFT EYE TWO TIMES A DAY DIRECTED FOR 14 DAYS, THEN ONCE A DAY FOR 14 DAYS INSTILL ON DROP INTO LEFT EYE TWO TIMES A DAY DIRECTED FOR 14 DAYS, THEN ONCE A DAY FOR 14 DAYS SOLD: 07/02/2020 [facility] 800 mg 06/16/2020 12:00:00 AM EDT tablet 20 TAKE ONE TABLET BY MOUTH EVERY 6 HOURS NEEDED FOR PAIN MAXIMUM DAILY DOSE = FOUR TABLETS TAKE ONE TABLET BY MOUTH EVERY 6 HOURS NEEDED FOR PAIN MAXIMUM DAILY DOSE = FOUR TABLETS SOLD: 06/16/2020 [facility] 5-325 mg 06/16/2020 12:00:00 AM EDT tablet 16 TAKE ONE TABLET BY MOUTH EVERY 6 HOURS NEEDED FOR PAIN MAXIMUM DAILY DOSE = FOUR TABLETS TAKE ONE TABLET BY MOUTH EVERY 6 HOURS NEEDED FOR PAIN MAXIMUM DAILY DOSE = FOUR TABLETS SOLD: 06/16/2020 [facility] 113-14 mcg/actuation 06/15/2020 12:00:00 AM EDT aerosol powdr breath activated 1 INHALE ONE PUFF BY MOUTH TWICE A DAY INHA LE ONE PUFF BY MOUTH TWICE A DAY SOLD: 06/16/2020 [facility] 10 mg 06/14/2020 12:00:00 AM EDT tablet 30 TAKE ONE TABLET BY MOUTH EVERY DAY TAKE ONE TABLET BY MOUTH EVERY DAY SOLD: 06/14/2020 [facility] AirDuo RespiClick 113/14 113-14 MCG/ACT [facility]piClick 11 3/ 113-14 MCG/ACT 06/14/2020 12:00:00 AM EDT 1.0 {puff} active AirDuo RespiClick 113/14 113-14 MCG/ACT eCW1 ([facility]) buspirone hydrochloride 15 MG Oral Tablet BUSPIRONE HCL 06/13/2020 12:00:00 AM EDT tablet 60 TAKE ONE TABLET BY MOUTH TWI CE A DAY TAKE ONE TABLET BY MOUTH TWICE A DAY SOLD: 06/14/2020 [facility] buspirone hydrochloride 15 MG Oral Tablet BusPIRone HC l 15 MG BusPIRone HCl 15 MG 06/12/2020 12:00:00 AM EDT 1.0 {tablet} activ e BusPIRone HCl 15 MG eCW1 ([facility]) 30 ACTUAT fluticasone furoate 0.2 MG/ACT UAT / vilanterol 0.025 MG/ACTUAT Dry Powder Inhaler [Breo] Breo Ellipta 200-25 MCG/INH Breo Ellipta 200-25 MCG/INH 06/12/2020 12:00:00 AM EDT 1.0 {puff} active Breo Ellipta 200-25 MCG/INH eCW1 ([facility]) 1 % 06/05/2020 12:00:00 AM EDT drops,suspension 10 INSTILL 1 DROP IN THE LEFT EYE TWO TIMES A DAY INSTILL 1 DROP IN THE LEFT EYE TWO TIMES A DAY SOLD: 06/05/2020 [facility] 500 mg 05/20/2020 12:00:00 AM EST capsule 21 TAKE ONE CAPSULE BY MOUTH EVERY 8 HOURS UNTIL GONE TAKE ONE CAPSULE BY MOUTH EVERY 8 HOURS UNTIL GONE VERA [facility] 0.12 % 05/20/2020 12:00:00 AM EST mouthwash 473 USE 15 ML SWISH AND SPIT OUT FOUR TIMES A DAY FOR 30 SECONDS USE 15 ML SWISH AND SPIT OUT FOUR TIMES A DAY FOR 30 SECONDS SOLD: 05/20/2020 [facility] 5-325 mg 05/20/2020 12:00:00 AM EST tablet 16 TAKE ONE TABLET BY MOUTH EVERY 6 HOURS NEEDED FOR PAIN MAXIMUM DAILY DOSE = 4 TAKE ONE TABLET BY MOUTH EVERY 6 HOURS NEEDED FOR PAIN MAXIMUM DAILY DOSE = 4 SOLD: 05/20/2020 [facility] 800 mg 05/20/2020 12:00:00 AM EST tablet 20 TAKE ONE TABLET BY MOUTH EVERY 6 HOURS WITH FOOD NEEDED FOR PAIN MAXIMUM DAILY DOSE = 4 TAKE ONE TABLET BY MOUTH EVERY 6 HOURS WITH FOOD NEEDED FOR PAIN MAXIMUM DAILY DOSE = 4 SOLD: 05/20/2020 [facility] 10 mg 05/14/2020 12:00:00 AM EST tablet 30 TAKE ONE TABLET BY MOUTH EVERY DAY TAKE ONE TABLET BY MOUTH EVERY DAY SOLD: 05/15/2020 [facility] 1 % 05/12/2020 12:00:00 AM EST drops,suspension 5 INSTILL ON DROP INTO LEFT EYE TWO TIMES A DAY DIRECTED FOR 14 DAYS, THEN ONCE A DAY FOR 14 DAYS INSTILL ON DROP INTO LEFT EYE TWO TIMES A DAY DIRECTED FOR 14 DAYS, THEN ONCE A DAY FOR 14 DAYS SOLD: 06/04/2020 [facility] 1 % 05/12/2020 12:00:00 AM EST drops,suspension 5 INSTILL ON DROP INTO LEFT EYE TWO TIMES A DAY DIRECTED FOR 14 DAYS, THEN ONCE A DAY FOR 14 DAYS INSTILL ON DROP INTO LEFT EYE TWO TIMES A DAY DIRECTED FOR 14 DAYS, THEN ONCE A DAY FOR 14 DAYS SOLD: 05/12/2020 [facility] 1 % 04/27/2020 12:00:00 AM EST drops,suspension 10 INSTILL 1 DROP IN THE LEFT EYE FOUR TIMES A DAY INSTILL 1 DROP IN THE LEFT EYE FOUR TIMES A DAY SOLD: 06/04/2020 [facility] 1 % 04/12/2020 12:00:00 AM EST drops,suspension 5 INSTILL ONE DROP IN THE LEFT EYE TWO TIMES A DAY INSTILL ONE DROP IN THE LEFT EYE TWO TIMES A DAY SOLD: 04/12/2020 [facility] 1 % 03/22/2020 12:00:00 AM EST drops,suspension 10 INSTILL 1 DROP IN THE LEFT EYE EVERY 2 HOURS WHILE AWAKE INSTILL 1 DROP IN THE LEFT EYE EVERY 2 H OURS WHILE AWAKE SOLD: 04/12/2020 [facility] 50 mcg/actuation 02/23/2020 12:00:00 AM EST spray,suspension 16 SPRAY 1 SPRAY IN EACH NOSTRIL ONCE DAILY SPRAY 1 SPRAY IN EACH NOSTRIL ONCE DAILY SOLD: 02/28/2020 [facility] Fluticasone Propionate 50 MCG/ACT Fluticasone Propionate 50 MCG/ACT 02/22/2020 12:00:00 AM EST 1.0 {spray_in_each_nostril} acti ve Fluticasone Propionate 50 MCG/ACT eCW1 ([facility]) Fluticasone Propionate 50 MCG/ACT Fluticasone Propionate 50 MCG/ACT 02/22/2020 12:00:00 AM EST 1.0 {spray_in_each_nostril} acti ve Fluticasone Propionate 50 MCG/ACT eCW1 ([facility]) Fluticasone Propionate 50 MCG/ACT Fluticasone Propionate 50 MCG/ACT 02/22/2020 12:00:00 AM EST 1.0 {spray_in_each_nostril} susp ended Fluticasone Propionate 50 MCG/ACT eCW1 ([facility]) Fluticasone Propionate 50 MCG/ACT Fluticasone Propionate 50 MCG/ACT 02/22/2020 12:00:00 AM EST 1.0 {spray_in_each_nostril} acti ve Fluticasone Propionate 50 MCG/ACT eCW1 ([facility]) Fluticasone Propionate 50 MCG/ACT Fluticasone Propionate 50 MCG/ACT 02/22/2020 12:00:00 AM EST 1.0 {spray_in_each_nostril} susp ended Fluticasone Propionate 50 MCG/ACT eCW1 ([facility]) 90 mcg/actuation 02/17/2020 12:00:00 AM EST HFA aerosol inha ler 18 INHALE ONE PUFF BY MOUTH EVERY 4 HOURS INHALE ONE PUFF BY MOUTH EVERY 4 HOURS SOLD: 02/17/2020 [facility] 90 mcg/actuation 02/17/2020 12:00:00 AM EST HFA aerosol inha ler 18 INHALE ONE PUFF BY MOUTH EVERY 4 HOURS INHALE ONE PUFF BY MOUTH EVERY 4 HOURS SOLD: 2020 [facility] 80 mcg/actuation 02/17/2020 12:00:00 AM EST HFA aerosol agnes th activated 10 INHALE ONE PUFF BY MOUTH EVERY DAY INHALE ONE PUFF BY MOUTH EVERY DAY SOLD: 2020 [facility] 80 mcg/actuation 02/17/2020 12:00:00 AM EST HFA aerosol agnes th activated 10 INHALE ONE PUFF BY MOUTH EVERY DAY INHALE ONE PUFF BY MOUTH EVERY DAY SOLD: 02/17/2020 [facility] 10 mg 02/17/2020 12:00:00 AM EST tablet 30 TAKE ONE TABLET BY MOUTH EVERY DAY TAKE ONE TABLET BY MOUTH EVERY DAY SOLD: 02/17/2020 [facility] Nasacort Allergy 24HR 55 MCG/ACT Nasacort Allergy 24HR 55 MC G/ACT 02/16/2020 12:00:00 AM EST active Nasacort Allergy 24HR 55 MCG/ACT eCW1 ([facility]) Loratadine 10 MG Oral Tablet [Claritin] Claritin 10 MG Alecia tin 10 MG 02/16/2020 12:00:00 AM EST 1.0 {tablet} active C laritin 10 MG eCW1 ([facility]) Loratadine 10 MG Oral Tablet [Claritin] Claritin 10 MG Alecia tin 10 MG 02/16/2020 12:00:00 AM EST 1.0 {tablet} active C laritin 10 MG eCW1 ([facility]) Qvar RediHaler 80 MCG/ACT Qvar RediHaler 80 MCG/ACT 02/16/2020 1 2:00:00 AM EST 1.0 {puff} active Qvar RediHale r 80 MCG/ACT eCW1 ([facility]) Loratadine 10 MG Oral Tablet [Claritin] Claritin 10 MG Alecia tin 10 MG 02/16/2020 12:00:00 AM EST 1.0 {tablet} active C laritin 10 MG eCW1 ([facility]) Loratadine 10 MG Oral Tablet [Claritin] Claritin 10 MG Alecia tin 10 MG 02/16/2020 12:00:00 AM EST 1.0 {tablet} active C laritin 10 MG eCW1 ([facility]) Loratadine 10 MG Oral Tablet [Claritin] Claritin 10 MG Alecia tin 10 MG 02/16/2020 12:00:00 AM EST 1.0 {tablet} active C laritin 10 MG eCW1 ([facility]) Loratadine 10 MG Oral Tablet [Claritin] Claritin 10 MG Alecia tin 10 MG 02/16/2020 12:00:00 AM EST 1.0 {tablet} active C laritin 10 MG eCW1 ([facility]) Nasacort Allergy 24HR 55 MCG/ACT Nasacort Allergy 24HR 55 MC G/ACT 02/16/2020 12:00:00 AM EST suspended Nasac ort Allergy 24HR 55 MCG/ACT eCW1 ([facility]) Loratadine 10 MG Oral Tablet [Claritin] Claritin 10 MG Alecia tin 10 MG 02/16/2020 12:00:00 AM EST 1.0 {tablet} active C laritin 10 MG eCW1 ([facility]) Qvar RediHaler 80 MCG/ACT Qvar RediHaler 80 MCG/ACT 02/16/2020 1 2:00:00 AM EST 1.0 {puff} active Qvar RediHale r 80 MCG/ACT eCW1 ([facility]) Nasacort Allergy 24HR 55 MCG/ACT Nasacort Allergy 24HR 55 MC G/ACT 02/16/2020 12:00:00 AM EST active Nasacort Allergy 24HR 55 MCG/ACT eCW1 ([facility]) Loratadine 10 MG Oral Tablet [Claritin] Claritin 10 MG Alecia tin 10 MG 02/16/2020 12:00:00 AM EST 1.0 {tablet} active C laritin 10 MG eCW1 ([facility]) Nasacort Allergy 24HR 55 MCG/ACT Nasacort Allergy 24HR 55 MC G/ACT 02/16/2020 12:00:00 AM EST active Nasacort Allergy 24HR 55 MCG/ACT eCW1 ([facility]) Nasacort Allergy 24HR 55 MCG/ACT Nasacort Allergy 24HR 55 MC G/ACT 02/16/2020 12:00:00 AM EST active Nasacort Allergy 24HR 55 MCG/ACT eCW1 ([facility]) Loratadine 10 MG Oral Tablet [Claritin] Claritin 10 MG Alecia tin 10 MG 02/16/2020 12:00:00 AM EST 1.0 {tablet} active C laritin 10 MG eCW1 ([facility]) Loratadine 10 MG Oral Tablet [Claritin] Claritin 10 MG Alecia tin 10 MG 02/16/2020 12:00:00 AM EST 1.0 {tablet} active C laritin 10 MG eCW1 ([facility]) Qvar RediHaler 80 MCG/ACT Qvar RediHaler 80 MCG/ACT 02/16/2020 1 2:00:00 AM EST 1.0 {puff} active Qvar RediHale r 80 MCG/ACT eCW1 ([facility]) Loratadine 10 MG Oral Tablet [Claritin] Claritin 10 MG Alecia tin 10 MG 02/16/2020 12:00:00 AM EST 1.0 {tablet} active C laritin 10 MG eCW1 ([facility]) Loratadine 10 MG Oral Tablet [Claritin] Claritin 10 MG Alecia tin 10 MG 02/16/2020 12:00:00 AM EST 1.0 {tablet} active C laritin 10 MG eCW1 ([facility]) Loratadine 10 MG Oral Tablet [Claritin] Claritin 10 MG Alecia tin 10 MG 02/16/2020 12:00:00 AM EST 1.0 {tablet} active C laritin 10 MG eCW1 ([facility]) Qvar RediHaler 80 MCG/ACT Qvar RediHaler 80 MCG/ACT 02/16/2020 1 2:00:00 AM EST 1.0 {puff} active Qvar RediHale r 80 MCG/ACT eCW1 ([facility]) 500 mg 11/21/2019 12:00:00 AM EDT tablet 30 TAKE ONE TABLET BY MOUTH TWICE A DAY WITH FOOD TAKE ONE TABLET BY MOUTH TWICE A DAY WITH FOOD SOLD: 020 [facility] Insurance Providers Payer name Policy type / Coverage type Policy ID Covered green party ID Covered green party's relationship to kearns Policy [place] Plan Information Medicaid [place] Medicaid [id number] Self [id number] Medicaid [place] Medicaid [id number] Self [id number] [facility] Commercial Insurance Co. [id number] Self [id number] [facility] Commercial Insurance Co. [id number] Self [id number] SELF PAY ONLY [id number] SP [id number] SP [id number] Self Pay P UNAVAILABLE S UNAVAILA BLE [facility](MCAID) O [id number] S [id number] ANSI-Medicaid [id number] ANSI-Not a Secondary Insurance [id number] MEDICAID [id number] SP [id number] [facility] [id number] SP [id number] ANSI-Not a Secondary Insurance [id number] ANSI-Medicaid [id number] ANSI-Not a Secondary Insurance [id number] ANSI-Medicaid [id number] ANSI-Not a Secondary Insurance [id number] ANSI-Medicaid [id number] ANSI-Medicaid [id number] ANSI-Not a Secondary Insurance [id number] ANSI-Not a Secondary Insurance [id number] ANSI-Medicaid [id number] [facility] [id number] SP [id number] MEDICAID M [id number] S [id number] [facility] Health Maintenance Organization ([facility]) [id number] Self [id number] ANSI-Medicaid [id number] ANSI-Not a Secondary Insurance [id number] [facility] [id number] SP [id number] [facility] O [id number] S [id number] SELF PAY UNAVAILABLE SP UNAVAILA BLE [facility] [id number] SP [id number] [facility] [id number] SP [id number] [facility] [id number] SP [id number] Problems, Conditions, and Diagnoses Code Display Name Description Problem Type Effective Dates Data Source(s) F12.10 [id number] Cannabis abuse Problem 05/13/2020 12:00:00 A M EST eCW1 ([facility]) H20.12 [id number] Chronic iritis, left eye Problem 05/13/2020 12:00:00 AM EST eCW1 ([facility]) J30.9 [id number] Allergic rhinitis, unspecified s easonality, unspecified trigger Problem 02/22/2020 12:00:00 AM EST eCW1 ([facility]) J45.40 [id number] Moderate persistent asthma, unsp ecified whether complicated Problem 02/16/2020 12:00:00 AM EST eCW1 ([facility]) Surgeries/Procedures Procedure Description Date Indications Data Source(s) X-Ray Spine Lumbosacral Complete Inc Bending Views Min Of 6 01/16/2020 12:00:00 AM EDT MEDENT ([facility]) MRI Lower Extremity Any Joint 12/03/2019 12:00:00 AM E DT MEDEMANUEL ([facility]) Results ID Date Data Source [id number] 10/12/2020 04:45:00 PM EDT [facility] Name Value Range Interpretation Code Description Data Sheeba rce(s) Supporting Document(s) SARS-CoV-2 RNA Resp Ql ERIC+probe NOT DETECTED [facility] This lab was ordered by [facility] and reported by [facility]. ID Date Data Source TOTAL PROTEIN,RANDOM URINE 09/07/2020 12:00:00 AM EDT eCW1 ( [facility]) Name Value Range Interpretation Code Description Data Sheeba rce(s) Supporting Document(s) 10.8 0.0-12.0 TOTAL PROTEIN,RANDOM URIN E eCW1 ([facility]) ID Date Data Source CREATININE,RANDOM URINE 09/07/2020 12:00:00 AM EDT eCW1 ([facility]) Name Value Range Interpretation Code Description Data Sheeba rce(s) Supporting Document(s) 49.1 CREATININE,RANDOM URINE eCW1 ( [facility]) ID Date Data Source UA URINALYSIS 09/07/2020 12:00:00 AM EDT eCW1 ([facility]) Name Value Range Interpretation Code Description Data Sheeba rce(s) Supporting Document(s) Laboratory studies (set) UA URINALYS IS eCW1 ([facility]) ID Date Data Source ERYTHROCYTE SEDIMENTATION RATE 09/07/2020 12:00:00 AM EDT eC W1 ([facility]) Name Value Range Interpretation Code Description Data Sheeba rce(s) Supporting Document(s) 2 0-15 ERYTHROCYTE SEDIMENTATION RATE eCW1 ([facility]) ID Date Data Source C REACTIVE PROTEIN QUANTITATIV (At [facility]) 09/07/2020 12:00 :00 AM EDT eCW1 ([facility]) Name Value Range Interpretation Code Description Data Sheeba rce(s) Supporting Document(s) 0.30 0.00-0.30 C REACTIVE PROTEIN QUANTI TATIV eCW1 ([facility]) ID Date Data Source Comprehensive Metabolic Profile (CMP) 09/07/2020 12:00:00 AM EDT eCW1 ([facility]) Name Value Range Interpretation Code Description Data Sheeba rce(s) Supporting Document(s) 9 7-18 BLOOD UREA NITROGEN eCW1 ([facility]) 90 70-100 GLUCOSE, FASTING eCW1 ([facility]) > 60.0 >60 GLOMERULAR FILTRATION RATE eCW 1 ([facility]) 139 136-145 SODIUM LEVEL eCW1 ([facility]) 0.86 0.70-1.30 CREATININE FOR GFR eCW1 ([facility] hospital) 4.3 3.5-5.1 POTASSIUM SERUM eCW1 ([facility]) 30 21-32 CARBON DIOXIDE LEVEL eCW1 ([facility]) 107 98-107 CHLORIDE LEVEL eCW1 ([facility]) 44 12-78 ALT/SGPT eCW1 ([facility]) 9.7 8.5-10.1 CALCIUM LEVEL eCW1 ([facility]) 31 7-37 AST/SGOT eCW1 ([facility]) 86 45-117 ALKALINE PHOSPHATASE eCW1 ([facility]) 0.2 0.2-1.0 BILIRUBIN,TOTAL eCW1 ([facility]) 7.4 6.4-8.2 TOTAL PROTEIN eCW1 ([facility]) 1.2 ALBUMIN/GLOBULIN RATIO eCW1 ([facility]) 4.0 3.2-5.2 ALBUMIN eCW1 ([facility]) ID Date Data Source CBC with Differential 09/07/2020 12:00:00 AM EDT eCW1 ([facility]) Name Value Range Interpretation Code Description Data Sheeba rce(s) Supporting Document(s) 6.0 4.0-10.0 WHITE BLOOD COUNT eCW1 ([facility]) 5.28 4.30-6.10 RED BLOOD COUNT eCW1 ([facility]) 47.9 42.0-52.0 HEMATOCRIT eCW1 ([facility]) 14.7 13.5-17.5 HEMOGLOBIN eCW1 ([facility]) 13.2 11.5-14.5 RED CELL DISTRIBUTION WID TH eCW1 ([facility]) 90.7 80.0-96.0 MEAN CORPUSCULAR VOLUME e CW1 ([facility]) 30.7 32.0-36.5 MEAN CORPUSCULAR HGB CONC eCW1 ([facility]) 27.8 27.0-33.0 MEAN CORPUSCULAR HEMOGLOB IN eCW1 ([facility]) 61.0 36.0-66.0 NEUTROPHILS % eCW1 ([facility]) 26.7 24.0-44.0 LYMPH % eCW1 ([facility]) 323 150-450 PLATELET COUNT, AUTOMATED eCW1 ([facility]) 0.5 0.0-1.0 BASO % eCW1 ([facility]) 8.9 2.0-8.0 MONO % eCW1 ([facility]) 2.6 0.0-3.0 EOS % eCW1 ([facility]) 3.7 1.5-8.5 NEUTROPHILS # eCW1 ([facility]) 0.5 0.0-0.8 MONO # eCW1 ([facility]) 1.6 1.5-5.0 LYMPH # eCW1 ([facility]) 0.0 0.0-0.2 BASO # eCW1 ([facility]) 0.2 0.0-0.5 EOS # eCW1 ([facility]) ID Date Data Source COMPLEMENT C4 09/07/2020 12:00:00 AM EDT eCW1 ([facility]) Name Value Range Interpretation Code Description Data Sheeba rce(s) Supporting Document(s) 31 10-40 COMPLEMENT C4 eCW1 ([facility]) ID Date Data Source COMPLEMENT C3 09/07/2020 12:00:00 AM EDT eCW1 ([facility]) Name Value Range Interpretation Code Description Data Sheeba rce(s) Supporting Document(s) 113 90-180 COMPLEMENT C3 eCW1 ([facility]) Procedure Social History Code Duration Value Status Description Data Source(s ) Smoking 01/11/2021 12:00:00 AM EDT Former Smoker completed Former Smoker eCW1 ([facility]) Smoking 09/07/2020 12:00:00 AM EDT Former Smoker completed Former Smoker eCW1 ([facility]) Smoking 09/07/2020 12:00:00 AM EDT Former Smoker completed Former Smoker eCW1 ([facility]) Smoking 09/07/2020 12:00:00 AM EDT Former Smoker completed Former Smoker eCW1 ([facility]) Smoking 09/07/2020 12:00:00 AM EDT Former Smoker completed Former Smoker eCW1 ([facility]) Smoking 09/07/2020 12:00:00 AM EDT Former Smoker completed Former Smoker eCW1 ([facility]) Smoking 09/07/2020 12:00:00 AM EDT Former Smoker completed Former Smoker eCW1 ([facility]) Smoking 09/07/2020 12:00:00 AM EDT Former Smoker completed Former Smoker eCW1 ([facility]) Smoking 06/11/2020 12:00:00 AM EDT Former Smoker completed Former Smoker eCW1 ([facility]) Smoking 05/13/2020 12:00:00 AM EST Former Smoker completed Former Smoker eCW1 ([facility]) Smoking 04/19/2020 12:00:00 AM EST Former Smoker completed Former Smoker eCW1 ([facility]) Smoking 04/19/2020 12:00:00 AM EST Former Smoker completed Former Smoker eCW1 ([facility]) Smoking 02/22/2020 12:00:00 AM EST Former Smoker completed Former Smoker eCW1 ([facility]) Vital Signs ID Date Data Source UNK Name Value Range Interpretation Code Description Data Source(s) Systolic blood pressure 114 mm[Hg] 114 mm[Hg] e CW1 ([facility]) Diastolic blood pressure 60 mm[Hg] 60 mm[Hg] eCW1 ([facility]) Body weight 189.8 [lb_av] 189.8 [lb_av] eCW1 ([facility]) Body weight 86.09 kg 86.09 kg eCW1 ([facility]) Body height 70 [in_i] 70 [in_i] eCW1 ([facility]) Body mass index (BMI) [Ratio] 27.23 kg/m2 27.23 kg/m2 eCW1 ([facility]) Heart rate 88 /min 88 /min eCW1 ([facility]) Respiratory rate 18 /min 18 /min eCW1 ([facility]) Body temperature 98.1 [degF] 98.1 [degF] eCW1 ( [facility]) Body weight 190 [lb_av] 190 [lb_av] eCW1 ([facility]) Body weight 86.1 kg 86.1 kg eCW1 ([facility]) Body height 70 [in_i] 70 [in_i] eCW1 ([facility]) Body mass index (BMI) [Ratio] 27.26 kg/m2 27.26 kg/m2 eCW1 ([facility]) Heart rate 82 /min 82 /min eCW1 ([facility]) Respiratory rate 18 /min 18 /min eCW1 ([facility]) Body temperature 98.0 [degF] 98.0 [degF] eCW1 ( [facility]) Systolic blood pressure 128 mm[Hg] 128 mm[Hg] e CW1 ([facility]) Diastolic blood pressure 80 mm[Hg] 80 mm[Hg] eCW1 ([facility]) Body weight 199.6 [lb_av] 199.6 [lb_av] eCW1 ([facility]) Body height 70 [in_i] 70 [in_i] eCW1 ([facility]) Body mass index (BMI) [Ratio] 28.64 kg/m2 28.64 kg/m2 eCW1 ([facility]) Heart rate 89 /min 89 /min eCW1 ([facility]) Respiratory rate 18 /min 18 /min eCW1 ([facility]) Body temperature 97.1 [degF] 97.1 [degF] eCW1 ( [facility]) Systolic blood pressure 118 mm[Hg] 118 mm[Hg] e CW1 ([facility]) Diastolic blood pressure 80 mm[Hg] 80 mm[Hg] eCW1 ([facility]) Body weight 200.2 [lb_av] 200.2 [lb_av] eCW1 ([facility]) Body height 70 [in_i] 70 [in_i] eCW1 ([facility]) Body mass index (BMI) [Ratio] 28.72 kg/m2 28.72 kg/m2 eCW1 ([facility]) Heart rate /min eCW1 ([facility]) Respiratory rate 18 /min 18 /min eCW1 ([facility]) Body temperature 98.4 [degF] 98.4 [degF] eCW1 ( [facility]) Systolic blood pressure 140 mm[Hg] 140 mm[Hg] e CW1 ([facility]) Diastolic blood pressure 80 mm[Hg] 80 mm[Hg] eCW1 ([facility]) Body weight 197 [lb_av] 197 [lb_av] eCW1 ([facility]) Body height 70 [in_i] 70 [in_i] eCW1 ([facility]) Body mass index (BMI) [Ratio] 28.26 kg/m2 28.26 kg/m2 eCW1 ([facility]) Heart rate 103 /min 103 /min eCW1 ([facility]) Respiratory rate 18 /min 18 /min eCW1 ([facility]) Body temperature 98.3 [degF] 98.3 [degF] eCW1 ( [facility]) Systolic blood pressure 138 mm[Hg] 138 mm[Hg] e CW1 ([facility]) Diastolic blood pressure 80 mm[Hg] 80 mm[Hg] eCW1 ([facility]) Body temperature 97.0 [degF] 97.0 [degF] MEDENT ([facility]) Body height 71 [in_i] 71 [in_i] MEDENT ([facility]) 5'11" Body weight 190.00 [lb_av] 190.00 [lb_av] MEDEN T ([facility]) Body mass index (BMI) [Ratio] 26.5 kg/m2 26.5 k g/m2 MEDENT ([facility]) Patient Treatment Plan of Care Planned Activity Planned Date Details Description Data Source (s) [employer] RespiClick 113/14 113-14 MCG/ACT 06/14/2020 12:00:00 AM EDT eCW1 ([facility]) buspirone hydrochloride 15 MG Oral Tablet 06/12/2020 12:00:00 AM ED T eCW1 ([facility]) 30 ACTUAT fluticasone furoate 0.2 MG/ACT UAT / vilanterol 0.025 MG/ACTUAT Dry Powder Inhaler [Breo] 06/12/2020 12:00:00 AM EDT eCW1 ([facility]) Fluticasone Propionate 50 MCG/ACT 02/22/2020 12:00:00 AM EST eCW1 ([facility]) Loratadine 10 MG Oral Tablet [Claritin] 02/16/2020 12:00:00 AM EST eCW1 ([facility]) Loratadine 10 MG Oral Tablet [Claritin] 02/16/2020 12:00:00 AM EST eCW1 ([facility]) Nasacort Allergy 24HR 55 MCG/ACT 02/16/2020 12:00:00 AM EST eCW1 ([facility]) Loratadine 10 MG Oral Tablet [Claritin] 02/16/2020 12:00:00 AM EST eCW1 ([facility]) Nasacort Allergy 24HR 55 MCG/ACT 02/16/2020 12:00:00 AM EST eCW1 ([facility]) Qvar RediHaler 80 MCG/ACT 02/16/2020 12:00:00 AM EST eCW1 ([facility])
--- OUTSIDE RECORDS SUMMARY | 2021-01-20 11:37 | CCD ---
Author Author [facility] Organization [facility] Address Unknown Phone Unavailable Care Team Providers Care Patient Service Associate Name Role Phone MCELHERAN, SILVER PA Unavailable [...] Unavailable Unavailable MCELHERAN, SILVER PA Unavailable Unavailable Adamaris Pitts MD Unavailable Unavailable VaneenenaamAdamaris MD Unavailable Unavailable VaneenenaamAdamaris MD Unavailable Unavailable VaneenenaamAdamaris MD Unavailable Unavailable VaneenenaamAdamaris MD Unavailable Unavailable VaneenenaamAdamaris MD Unavailable Unavailable VaneenenaamAdamaris MD Unavailable Unavailable VaneendaxamAdamaris MD Unavailable Unavailable VaneenenaamAdamaris MD Unavailable Unavailable VaneenenaamAdamaris MD Unavailable Unavailable Vaneenenaam, Adamaris Dennis MD Unavailable Unavailable VaneenenaamAdamaris MD Unavailable Unavailable Vaneenenaam, Adamaris Dennis MD Unavailable Unavailable VaneenenaamAdamaris MD Unavailable Unavailable Vaneendaxam, Adamaris Dennis MD Unavailable Unavailable VanvincentamAdamaris MD Unavailable Unavailable Vaneenenaam, Adamaris Dennis MD Unavailable Unavailable Vaneenenaam, Adamaris Dennis MD Unavailable Unavailable Vaneendaxam, Adamaris Dennis MD Unavailable Unavailable VanvincentamAdamaris MD Unavailable Unavailable VanvincentamAdamaris MD Unavailable Unavailable VanAdamaris funes MD Unavailable Unavailable VaneendaxamAdamaris MD Unavailable Unavailable [...] Unavailable Unavailable VanAdamaris funes MD Unavailable Unavailable Mary Hansen-C Unavailable Unavailable Mary HansenC Unavailable Unavailable Mary Hansen-C Unavailable Unavailable Hansen, M Christopher PA-C Unavailable Unavailable Hansen, M Christopher PA-C Unavailable Unavailable Hansen, M Christopher PA-C Unavailable Unavailable Hansen, M Christopher PA-C Unavailable Unavailable Hansen, M Christopher PA-C Unavailable Unavailable Hansen, M Christopher PA-C Unavailable Unavailable Hansen, M Christopher PA-C Unavailable Unavailable Hansne, M Christopher PA-C Unavailable Unavailable Hansen, M [...] is protected by Article 27-F of the [facility] Public Health law. If you continue you may have access to information: Regarding HIV / AIDS; Provided by facilities licensed or operated by the [facility] Office of Mental Health; or Provided by the [facility] Office for People With Developmental Disabilities. If such information is present, then the following [facility] mandated warning applies: This information has been [...] law may result in a fine or shelter sentence or both. A general authorization for the release of medical or other information is NOT sufficient authorization for further disc losure. Family History Family Member Name Family Member Gender Family Member Status Date o f Status Description Data Source(s) Unknown Male Problem MEDENT ([facility]) Unknown Unknown Problem MEDENT ([facility]) Encounters Encounter Providers Location Date Indications Data Source(s ) Outpatient 01/17/2021 08:33:34 AM EDT - 021 08:40:28 AM EDT [facility] ([facility]) [place] [address] [address] 01/11/2021 12:00:00 AM EDT [facility]CW[facility] ([facility] [place] [address] [address] 11/02/2020 12:00:00 AM EDT [facility]CW1 ([facility] [place] [address] [address] 11/01/2020 12:00:00 AM EDT eCW1 ([facility]) Outpatient Attender: Lance Hansen PA-C 10/12/2020 04:17:12 PM EDT - 10/12/2020 06:04:38 PM EDT [facility] ([facility]) [place] [address] [address] 10/05/2020 12:00:00 AM EDT eCW1 ([facility]) [place] [address] [place] [address] 09/07/2020 12:00:00 AM EDT eCW1 ([facility]) [place] [address] [address] 09/07/2020 12:00:00 AM EDT [facility]CW1 [facility] [place] [address] [address] 06/14/2020 12:00:00 AM EDT eCW1 ([facility]) [place] [address] [address] 06/11/2020 12:00:00 AM EDT eCW1 ([facility]) [place] [address] [address] 05/13/2020 12:00:00 AM EST eCW1 ([facility]) [place] [address] [address] 05/11/2020 12:00:00 AM EST eCW1 ([facility]) [place] [address] [address] 04/19/2020 12:00:00 AM EST eCW1 ([facility]) [place] [address] [address] 02/18/2020 12:00:00 AM EST eCW1 ([facility]) [place] [address] [address] 02/16/2020 12:00:00 AM EST eCW1 ([facility]) Outpatient Attender: SILVER WAYNE Physical Therapy 01/16/2020 01:45:00 PM EDT MEDENT ([facility]) Outpatient Attender: Adamaris Pitts MD Physical Therap y 12/23/2019 09:45:00 AM EDT MEDENT ([facility]) Outpatient Attender: Adamaris Pitts MD Physical Therap y 11/27/2019 09:30:00 AM EDT MEDENT ([facility]) Medications Medication Brand [...] A DAY FOR 14 DAYS SOLD: 07/02/2020 [facility] 800 mg 06/16/2020 12:00:00 AM [...] RespiClick 113/14 113-14 MCG/ACT [facility] 11 3/14 113-14 MCG/ACT 06/14/2020 12:00:00 AM EDT 1.0 {puff} active [employer]piClick 113/14 113-14 MCG/ACT eCW1 ([facility]) buspirone hydrochloride 15 MG Oral Tablet BUSPIRONE [...] activ e BusPIRone HCl 15 MG eCW1 ([facility]) 30 ACTUAT fluticasone furoate 0.2 MG/ACT UAT / vilanterol 0.025 MG/ACTUAT Dry Powder Inhaler [Breo] Breo Ellipta 200-25 MCG/INH Breo Ellipta 200-25 MCG/INH 06/12/2020 12:00:00 AM EDT 1.0 {puff} active Breo Ellipta 200-25 MCG/INH eCW1 ([facility]) 1 % 06/05/2020 12:00:00 AM EDT drops,suspension [...] acti ve Fluticasone Propionate 50 MCG/ACT eCW1 ([facility]) Fluticasone Propionate 50 MCG/ACT Fluticasone Propionate 50 MCG/ACT 02/22/2020 12:00:00 AM EST 1.0 {spray_in_each_nostril} acti ve Fluticasone Propionate 50 MCG/ACT eCW1 ([facility]) Fluticasone Propionate 50 MCG/ACT Fluticasone Propionate 50 MCG/ACT 02/22/2020 12:00:00 AM EST 1.0 {spray_in_each_nostril} susp ended Fluticasone Propionate 50 MCG/ACT eCW1 ([facility]) Fluticasone Propionate 50 MCG/ACT Fluticasone Propionate 50 MCG/ACT 02/22/2020 12:00:00 AM EST 1.0 {spray_in_each_nostril} acti ve Fluticasone Propionate 50 MCG/ACT eCW1 ([facility]) Fluticasone Propionate 50 MCG/ACT Fluticasone Propionate 50 MCG/ACT 02/22/2020 12:00:00 AM EST 1.0 {spray_in_each_nostril} susp ended Fluticasone Propionate 50 MCG/ACT eCW1 ([facility]) 90 mcg/actuation 02/17/2020 12:00:00 AM EST HFA [...] active Nasacort Allergy 24HR 55 MCG/ACT eCW1 ([facility]) Loratadine 10 MG Oral Tablet [Claritin] Claritin 10 MG Alecia tin 10 MG 02/16/2020 12:00:00 AM EST 1.0 {tablet} active C laritin 10 MG eCW1 ([facility]) Loratadine 10 MG Oral Tablet [Claritin] Claritin 10 MG Alecia tin 10 MG 02/16/2020 12:00:00 AM EST 1.0 {tablet} active C laritin 10 MG eCW1 ([facility]) Qvar RediHaler 80 MCG/ACT Qvar RediHaler 80 MCG/ACT 02/16/2020 1 2:00:00 AM EST 1.0 {puff} active Qvar RediHale r 80 MCG/ACT eCW1 ([facility]) Loratadine 10 MG Oral Tablet [Claritin] Claritin 10 MG Alecia tin 10 MG 02/16/2020 12:00:00 AM EST 1.0 {tablet} active C laritin 10 MG eCW1 ([facility]) Loratadine 10 MG Oral Tablet [Claritin] Claritin 10 MG Alecia tin 10 MG 02/16/2020 12:00:00 AM EST 1.0 {tablet} active C laritin 10 MG eCW1 ([facility]) Loratadine 10 MG Oral Tablet [Claritin] Claritin 10 MG Alecia tin 10 MG 02/16/2020 12:00:00 AM EST 1.0 {tablet} active C laritin 10 MG eCW1 ([facility]) Loratadine 10 MG Oral Tablet [Claritin] Claritin 10 MG Alecia tin 10 MG 02/16/2020 12:00:00 AM EST 1.0 {tablet} active C laritin 10 MG eCW1 ([facility]) Nasacort Allergy 24HR 55 MCG/ACT Nasacort Allergy 24HR 55 MC G/ACT 02/16/2020 12:00:00 AM EST suspended Nasac ort Allergy 24HR 55 MCG/ACT eCW1 ([facility]) Loratadine 10 MG Oral Tablet [Claritin] Claritin 10 MG Alecia tin 10 MG 02/16/2020 12:00:00 AM EST 1.0 {tablet} active C laritin 10 MG eCW1 ([facility]) Qvar RediHaler 80 MCG/ACT Qvar RediHaler 80 MCG/ACT 02/16/2020 1 2:00:00 AM EST 1.0 {puff} active Qvar RediHale r 80 MCG/ACT eCW1 ([facility]) Nasacort Allergy 24HR 55 MCG/ACT Nasacort Allergy 24HR 55 MC G/ACT 02/16/2020 12:00:00 AM EST active Nasacort Allergy 24HR 55 MCG/ACT eCW1 ([facility]) Loratadine 10 MG Oral Tablet [Claritin] Claritin 10 MG Alecia tin 10 MG 02/16/2020 12:00:00 AM EST 1.0 {tablet} active C laritin 10 MG eCW1 ([facility]) Nasacort Allergy 24HR 55 MCG/ACT Nasacort Allergy 24HR 55 MC G/ACT 02/16/2020 12:00:00 AM EST active Nasacort Allergy 24HR 55 MCG/ACT eCW1 ([facility]) Nasacort Allergy 24HR 55 MCG/ACT Nasacort Allergy 24HR 55 MC G/ACT 02/16/2020 12:00:00 AM EST active Nasacort Allergy 24HR 55 MCG/ACT eCW1 ([facility]) Loratadine 10 MG Oral Tablet [Claritin] Claritin 10 MG Alecia tin 10 MG 02/16/2020 12:00:00 AM EST 1.0 {tablet} active C laritin 10 MG eCW1 ([facility]) Loratadine 10 MG Oral Tablet [Claritin] Claritin 10 MG Alecia tin 10 MG 02/16/2020 12:00:00 AM EST 1.0 {tablet} active C laritin 10 MG eCW1 ([facility]) Qvar RediHaler 80 MCG/ACT Qvar RediHaler 80 MCG/ACT 02/16/2020 1 2:00:00 AM EST 1.0 {puff} active Qvar RediHale r 80 MCG/ACT eCW1 ([facility]) Loratadine 10 MG Oral Tablet [Claritin] Claritin 10 MG Alecia tin 10 MG 02/16/2020 12:00:00 AM EST 1.0 {tablet} active C laritin 10 MG eCW1 ([facility]) Loratadine 10 MG Oral Tablet [Claritin] Claritin 10 MG Alecia tin 10 MG 02/16/2020 12:00:00 AM EST 1.0 {tablet} active C laritin 10 MG eCW1 ([facility]) Loratadine 10 MG Oral Tablet [Claritin] Claritin 10 MG Alecia tin 10 MG 02/16/2020 12:00:00 AM EST 1.0 {tablet} active C laritin 10 MG eCW1 ([facility]) Qvar RediHaler 80 MCG/ACT Qvar RediHaler 80 MCG/ACT 02/16/2020 1 2:00:00 AM EST 1.0 {puff} active Qvar RediHale r 80 MCG/ACT eCW1 ([facility]) 500 mg 11/21/2019 12:00:00 AM EDT tablet 30 TAKE ONE TABLET BY MOUTH TWICE A DAY WITH FOOD TAKE ONE TABLET BY MOUTH TWICE A DAY WITH FOOD SOLD: 020 [facility] Insurance Providers Payer name Policy type / Coverage type Policy ID Covered republican ID Covered republican's relationship to kearns Policy [place] Plan Information Medicaid ID Medicaid [id number] Self [id number] Medicaid ID Medicaid [id number] Self [id number] [facility] Commercial Insurance Co. [id number] Self [id number] [facility] Commercial Insurance Co. [id number] Self [id number] [id number] [id number] SP [id number] Self Pay P UNAVAILABLE S UNAVAILA BLE [facility] O [id number] S [id number] ANSI-Medicaid [id number] ANSI-Not a Secondary Insurance [id number] MEDICAID [id number] SP [id number] [id number] SP [id number] ANSI-Not a Secondary Insurance [id number] ANSI-Medicaid [id number] ANSI-Not a Secondary Insurance [id number] ANSI-Medicaid [id number] ANSI-Not a Secondary Insurance [id number] ANSI-Medicaid [id number] ANSI-Medicaid [id number] ANSI-Not a Secondary Insurance [id number] ANSI-Not a Secondary Insurance [id number] ANSI-Medicaid [id number] [facility] [id number] SP [id number] MEDICAID [id number] S [id number] [facility] Health Maintenance Organization [place] [id number] Self [id number] ANSI-Medicaid [id number] ANSI-Not a Secondary Insurance [id number] [facility] [id number] SP [id number] [facility] O [id number] S [id number] SELF PAY UNAVAILABLE SP UNAVAILA BLE [facility] [id number] SP [id number] [facility] [id number] SP [id number] [facility] [id number] SP [id number] SELF PAY ONLY [id number] SP [id number] Problems, Conditions, and Diagnoses Code Display Name Description Problem Type Effective Dates Data Source(s) F12.10 [id number] Cannabis abuse Problem 05/13/2020 12:00:00 A M EST eCW1 ([facility]) H20.12 [id number] Chronic iritis, left eye Problem 05/13/2020 12:00:00 AM EST eCW1 ([facility]) J30.9 [id number] Allergic rhinitis, unspecified s easonality, unspecified trigger Problem 02/22/2020 12:00:00 AM EST eCW1 ([facility]) J45.40 [id number] Moderate persistent asthma, unsp ecified whether complicated Problem 02/16/2020 12:00:00 AM EST eCW1 ([facility]) Surgeries/Procedures Procedure Description Date Indications Data Source(s) X-Ray Spine Lumbosacral Complete Inc Bending Views Min Of 6 01/16/2020 12:00:00 AM EDT MEDENT ([facility]) MRI Lower Extremity Any Joint 12/03/2019 12:00:00 AM E DT MEDENT ([facility]) Results ID Date Data Source [id number] 10/12/2020 04:45:00 PM EDT [facility] Name Value Range Interpretation Code Description Data Sheeba rce(s) Supporting Document(s) SARS-CoV-2 RNA Resp Ql ERIC+probe NOT DETECTED [facility] This lab was ordered by [facility] and reported by [facility]. ID Date Data Source TOTAL PROTEIN,RANDOM URINE 09/07/2020 12:00:00 AM EDT eCW1 ( [facility]) Name Value Range Interpretation Code Description Data Sheeba rce(s) Supporting Document(s) 10.8 0.0-12.0 TOTAL PROTEIN,RANDOM URIN E eCW1 ([facility]) ID Date Data Source CREATININE,RANDOM URINE 09/07/2020 12:00:00 AM EDT eCW1 ([facility]) Name Value Range Interpretation Code Description Data Sheeba rce(s) Supporting Document(s) 49.1 CREATININE,RANDOM URINE eCW1 ( [facility]) ID Date Data Source UA URINALYSIS 09/07/2020 12:00:00 AM EDT eCW1 ([facility]) Name Value Range Interpretation Code Description Data Sheeba rce(s) Supporting Document(s) Laboratory studies (set) UA URINALYS IS eCW1 ([facility]) ID Date Data Source ERYTHROCYTE SEDIMENTATION RATE 09/07/2020 12:00:00 AM EDT eC W1 ([facility]) Name Value Range Interpretation Code Description Data Sheeba rce(s) Supporting Document(s) 2 0-15 ERYTHROCYTE SEDIMENTATION RATE eCW1 ([facility]) ID Date Data Source C REACTIVE PROTEIN QUANTITATIV (At [facility]) 09/07/2020 12:00 :00 AM EDT eCW1 ([facility]) Name Value Range Interpretation Code Description Data Sheeba rce(s) Supporting Document(s) 0.30 0.00-0.30 C REACTIVE PROTEIN QUANTI TATIV eCW1 ([facility]) ID Date Data Source Comprehensive Metabolic Profile (CMP) 09/07/2020 12:00:00 AM EDT eCW1 ([facility]) Name Value Range Interpretation Code Description Data Seheba rce(s) Supporting Document(s) 9 7-18 BLOOD UREA NITROGEN eCW1 ([facility] includes the [facility]) 90 70-100 GLUCOSE, FASTING eCW1 ([facility]) > 60.0 >60 GLOMERULAR FILTRATION RATE eCW 1 ([facility]) 139 136-145 SODIUM LEVEL eCW1 ([facility]) 0.86 0.70-1.30 CREATININE FOR GFR eCW1 ([facility]) 4.3 3.5-5.1 POTASSIUM SERUM eCW1 ([facility]) 30 21-32 CARBON DIOXIDE LEVEL eCW1 ([facility]) 107 98-107 CHLORIDE LEVEL eCW1 ([facility]) 44 12-78 ALT/SGPT eCW1 ([facility]) 9.7 8.5-10.1 CALCIUM LEVEL eCW1 ([facility]) 31 7-37 AST/SGOT eCW1 ([facility]) 86 45-117 ALKALINE PHOSPHATASE eCW1 ([facility]) 0.2 0.2-1.0 BILIRUBIN,TOTAL eCW1 ([facility]) 7.4 6.4-8.2 TOTAL PROTEIN eCW1 ([facility]) 1.2 ALBUMIN/GLOBULIN RATIO eCW1 ([facility]) 4.0 3.2-5.2 ALBUMIN eCW1 ([facility]) ID Date Data Source CBC with Differential 09/07/2020 12:00:00 AM EDT eCW1 ([facility]) Name Value Range Interpretation Code Description Data Sheeba rce(s) Supporting Document(s) 6.0 4.0-10.0 WHITE BLOOD COUNT eCW1 ([facility]) 5.28 4.30-6.10 RED BLOOD COUNT eCW1 ([facility]) 47.9 42.0-52.0 HEMATOCRIT eCW1 ([facility]) 14.7 13.5-17.5 HEMOGLOBIN eCW1 ([facility]) 13.2 11.5-14.5 RED CELL DISTRIBUTION WID TH eCW1 ([facility]) 90.7 80.0-96.0 MEAN CORPUSCULAR VOLUME e CW1 ([facility]) 30.7 32.0-36.5 MEAN CORPUSCULAR HGB CONC eCW1 ([facility]) 27.8 27.0-33.0 MEAN CORPUSCULAR HEMOGLOB IN eCW1 ([facility]) 61.0 36.0-66.0 NEUTROPHILS % eCW1 ([facility]) 26.7 24.0-44.0 LYMPH % eCW1 ([facility]) 323 150-450 PLATELET COUNT, AUTOMATED eCW1 ([facility]) 0.5 0.0-1.0 BASO % eCW1 ([facility]) 8.9 2.0-8.0 MONO % eCW1 ([facility]) 2.6 0.0-3.0 EOS % eCW1 ([facility]) 3.7 1.5-8.5 NEUTROPHILS # eCW1 ([facility]) 0.5 0.0-0.8 MONO # eCW1 ([facility]) 1.6 1.5-5.0 LYMPH # eCW1 ([facility]) 0.0 0.0-0.2 BASO # eCW1 ([facility]) 0.2 0.0-0.5 EOS # eCW1 ([facility]) ID Date Data Source COMPLEMENT C4 09/07/2020 12:00:00 AM EDT eCW1 ([facility]) Name Value Range Interpretation Code Description Data Sheeba rce(s) Supporting Document(s) 31 10-40 COMPLEMENT C4 eCW1 ([facility]) ID Date Data Source COMPLEMENT C3 09/07/2020 12:00:00 AM EDT eCW1 ([facility]) Name Value Range Interpretation Code Description Data Sheeba rce(s) Supporting Document(s) 113 90-180 COMPLEMENT C3 eCW1 ([facility]) Procedure Social History Code Duration Value Status Description Data Source(s ) Smoking 01/11/2021 12:00:00 AM EDT Former Smoker completed Former Smoker eCW1 ([facility]) Smoking 09/07/2020 12:00:00 AM EDT Former Smoker completed Former Smoker eCW1 ([facility]) Smoking 09/07/2020 12:00:00 AM EDT Former Smoker completed Former Smoker eCW1 ([facility]) Smoking 09/07/2020 12:00:00 AM EDT Former Smoker completed Former Smoker eCW1 ([facility]) Smoking 09/07/2020 12:00:00 AM EDT Former Smoker completed Former Smoker eCW1 ([facility]) Smoking 09/07/2020 12:00:00 AM EDT Former Smoker completed Former Smoker eCW1 ([facility]) Smoking 09/07/2020 12:00:00 AM EDT Former Smoker completed Former Smoker eCW1 ([facility]) Smoking 09/07/2020 12:00:00 AM EDT Former Smoker completed Former Smoker eCW1 ([facility]) Smoking 06/11/2020 12:00:00 AM EDT Former Smoker completed Former Smoker eCW1 ([facility]) Smoking 05/13/2020 12:00:00 AM EST Former Smoker completed Former Smoker eCW1 ([facility]) Smoking 04/19/2020 12:00:00 AM EST Former Smoker completed Former Smoker eCW1 ([facility]) Smoking 04/19/2020 12:00:00 AM EST Former Smoker completed Former Smoker eCW1 ([facility]) Smoking 02/22/2020 12:00:00 AM EST Former Smoker completed Former Smoker eCW1 ([facility]) Vital Signs ID Date Data Source UNK Name Value Range Interpretation Code Description Data Source(s) Body weight 189.8 [lb_av] 189.8 [lb_av] eCW1 ([facility]) Body weight 86.09 kg 86.09 kg eCW1 ([facility]) Systolic blood pressure 114 mm[Hg] 114 mm[Hg] e CW1 ([facility]) Diastolic blood pressure 60 mm[Hg] 60 mm[Hg] eCW1 ([facility]) Body height 70 [in_i] 70 [in_i] eCW1 ([facility]) Body mass index (BMI) [Ratio] 27.23 kg/m2 27.23 kg/m2 eCW1 ([facility]) Heart rate 88 /min 88 /min eCW1 ([facility]) Respiratory rate 18 /min 18 /min eCW1 ([facility]) Body temperature 98.1 [degF] 98.1 [degF] eCW1 ( [facility]) Body weight 190 [lb_av] 190 [lb_av] eCW1 ([facility]) Body weight 86.1 kg 86.1 kg eCW1 ([facility]) Body height 70 [in_i] 70 [in_i] eCW1 ([facility]) Body mass index (BMI) [Ratio] 27.26 kg/m2 27.26 kg/m2 eCW1 ([facility]) Heart rate 82 /min 82 /min eCW1 ([facility]) Respiratory rate 18 /min 18 /min eCW1 ([facility]) Body temperature 98.0 [degF] 98.0 [degF] eCW1 ( [facility]) Systolic blood pressure 128 mm[Hg] 128 mm[Hg] e CW1 ([facility]) Diastolic blood pressure 80 mm[Hg] 80 mm[Hg] eCW1 ([facility]) Body weight 199.6 [lb_av] 199.6 [lb_av] eCW1 ([facility]) Body height 70 [in_i] 70 [in_i] eCW1 ([facility]) Body mass index (BMI) [Ratio] 28.64 kg/m2 28.64 kg/m2 eCW1 ([facility]) Heart rate 89 /min 89 /min eCW1 ([facility]) Respiratory rate 18 /min 18 /min eCW1 ([facility]) Body temperature 97.1 [degF] 97.1 [degF] eCW1 ( [facility]) Systolic blood pressure 118 mm[Hg] 118 mm[Hg] e CW1 ([facility]) Diastolic blood pressure 80 mm[Hg] 80 mm[Hg] eCW1 ([facility]) Body weight 200.2 [lb_av] 200.2 [lb_av] eCW1 ([facility]) Body height 70 [in_i] 70 [in_i] eCW1 ([facility]) Body mass index (BMI) [Ratio] 28.72 kg/m2 28.72 kg/m2 eCW1 ([facility]) Heart rate /min eCW1 ([facility]) Respiratory rate 18 /min 18 /min eCW1 ([facility]) Body temperature 98.4 [degF] 98.4 [degF] eCW1 ( [facility]) Systolic blood pressure 140 mm[Hg] 140 mm[Hg] e CW1 ([facility]) Diastolic blood pressure 80 mm[Hg] 80 mm[Hg] eCW1 ([facility]) Body weight 197 [lb_av] 197 [lb_av] eCW1 ([facility]) Body height 70 [in_i] 70 [in_i] eCW1 ([facility]) Body mass index (BMI) [Ratio] 28.26 kg/m2 28.26 kg/m2 eCW1 ([facility]) Heart rate 103 /min 103 /min eCW1 ([facility]) Respiratory rate 18 /min 18 /min eCW1 ([facility]) Body temperature 98.3 [degF] 98.3 [degF] eCW1 ( [facility]) Systolic blood pressure 138 mm[Hg] 138 mm[Hg] e CW1 ([facility]) Diastolic blood pressure 80 mm[Hg] 80 mm[Hg] eCW1 ([facility]) Body height 71 [in_i] 71 [in_i] MEDENT ([facility]) 5'11" Body weight 190.00 [lb_av] 190.00 [lb_av] MEDEN T ([facility]) Body mass index (BMI) [Ratio] 26.5 kg/m2 26.5 k g/m2 MEDENT ([facility]) Body temperature 97.0 [degF] 97.0 [degF] MEDENT ([facility]) Patient Treatment Plan of Care Planned Activity Planned Date Details Description Data Source (s) [employer] 113/14 113-14 MCG/ACT 06/14/2020 12:00:00 AM EDT eCW1 ([facility]) buspirone hydrochloride 15 MG Oral Tablet 06/12/2020 12:00:00 AM ED T eCW1 ([facility]) 30 ACTUAT fluticasone furoate 0.2 MG/ACT UAT / vilanterol 0.025 MG/ACTUAT Dry Powder Inhaler [Breo] 06/12/2020 12:00:00 AM EDT eCW1 ([facility]) Fluticasone Propionate 50 MCG/ACT 02/22/2020 12:00:00 AM EST eCW1 ([facility]) Loratadine 10 MG Oral Tablet [Claritin] 02/16/2020 12:00:00 AM EST eCW1 ([facility]) Loratadine 10 MG Oral Tablet [Claritin] 02/16/2020 12:00:00 AM EST eCW1 ([facility]) Nasacort Allergy 24HR 55 MCG/ACT 02/16/2020 12:00:00 AM EST eCW1 ([facility]) Loratadine 10 MG Oral Tablet [Claritin] 02/16/2020 12:00:00 AM EST eCW1 ([facility]) Nasacort Allergy 24HR 55 MCG/ACT 02/16/2020 12:00:00 AM EST eCW1 ([facility]) Qvar RediHaler 80 MCG/ACT 02/16/2020 12:00:00 AM EST eCW1 ([facility])
[2021-01-20] MEDS ORDERED: ALBUTEROL 90 MCG/ACT 8GM HFA INHALER INH ONE (11:55)
[2021-01-20] MEDS: LIDOCAINE 5% (LIDODERM) PATCH TD ONE ×2 (12:15→12:21)
[2021-01-20] MEDS: KETOROLAC TROMETHAMINE 10 MG TAB PO ONE ×2 (12:18→12:22)
[2021-01-20] MEDS ORDERED: NS 1,000 ML IV ONE (12:20)
--- NOTE | 2021-01-20 12:30 | REPVR ---
PROCEDURE INFORMATION: Exam: CT Lumbar Spine Without Contrast Exam date and time: 01/20/2021 12:00 PM Age: 35 years old Clinical indication: Low back pain; Additional info: Lumbar back pain l4-l5 region TECHNIQUE: Imaging protocol: Computed tomography images of the lumbar spine without contrast. Radiation optimization: All CT scans at this facility use at least one of these dose optimization techniques: automated exposure control; mA and/or kV adjustment per patient size (includes targeted exams where dose is matched to clinical indication); or iterative reconstruction. COMPARISON: CR Spine. Lumbosacral, complete 06/14/2016 1:42 AM FINDINGS: Vertebrae: Anatomic alignment. No acute fracture seen. The intervertebral disc heights are preserved. L1-L2: No significant disc protrusion. No severe spinal canal stenosis. No significant neural foraminal narrowing. L2-L3: No significant disc protrusion. No severe spinal canal stenosis. No significant neural foraminal narrowing. L3-L4: No significant disc protrusion. No severe spinal canal stenosis. No significant neural foraminal narrowing. L4-L5: Mild diffuse disc bulge, facet arthropathy and ligamentum flavum buckling. A left paracentral disc protrusion measures approximately 4 mm in AP dimension likely contacting the left L5 nerve root in the lateral recess. Central spinal canal stenosis is mild. Mild left neural foraminal stenosis. No significant right neural foraminal narrowing. L5-S1: Mild facet arthropathy. No stenoses. Other bones/joints: Focal, sclerotic lesions in the right iliac wing, most likely bone islands. Soft tissues: Unremarkable. IMPRESSION: A left paracentral disc protrusion at L4-L5 may be cause of left L5 distribution radiculopathy. Electronically signed by: Bibiana Pagan On 01/20/2021 12:29:36 PM
[2021-01-20 12:50] LABS: RSV AMPLIFICATION NEGATIVE (NEGATIVE)
--- NOTE | 2021-01-20 13:06 | REP ---
INDICATION: wheezing/cough COMPARISON: 11/02/2020. TECHNIQUE: PA/Lateral FINDINGS: Lungs: Clear, no infiltrate. Heart: Normal in size. Mediastinum: Mediastinal silhouette unremarkable. Pleural angles: Unremarkable.. Bones and soft tissues: Unremarkable. IMPRESSION: No acute pulmonary disease. <Electronically signed by Alejandro Grant > 01/20/21 [id number]
[2021-01-20] MEDS ORDERED: LIDO5DIS41 TOP (13:24)
[2021-01-20] MEDS ORDERED: METH-1164 PO (13:25)
[2021-01-20] MEDS ORDERED: PROAAER10 INH (13:26)
[2021-01-20 13:54] VITALS: BP 161/95
[2021-01-20] MEDS ORDERED: **NOTE PATIENT COMMENT** MISC XX SCH (21:00)
== END 2021-01-20 13:57 | disposition home or self-care (01) ==
LOC: M ED 09:43
DX: M51.26 Other intervertebral disc displacement, lumbar region (principal); R10.9 Unspecified abdominal pain; D64.9 Anemia, unspecified; Z87.19 Personal history of other diseases of the digestive system

== ENCOUNTER 2021-03-13 19:28 | Emergency (ER) | payer OTHER ==
[~2021-03-13] VITALS: Ht 180.3 cm; Wt 87.2 kg
[~2021-03-13 19:28] MED LIST changes: +LIDO5DIS41 TOP; +METH-1164 PO; +PROAAER10 INH
[2021-03-13 19:29] VITALS: BP 131/83
== END 2021-03-13 23:48 | disposition left against medical advice (07) ==
LOC: M ED 19:28
DX: Z53.29 Procedure and treatment not carried out because of patient's decision for other reasons (principal)

== ENCOUNTER → 2021-06-07 | Outpatient (CLI) | payer OTHER ==
[2021-06-07 18:26] LABS: C REACTIVE PROTEIN QUANTITATIV < 0.30 MG/DL (0.00-0.30); RHEUMATOID FACTOR QUANT < 10.0 IU/ML (<15.0)
== END ==
LOC: M LAB 17:12
PROVIDERS: ATTEND Physician Assistant
DX: M43.12 Spondylolisthesis, cervical region (principal)

== ENCOUNTER 2022-03-18 09:38 | Emergency (ER) | payer OTHER ==
[~2022-03-18] VITALS: Ht 180.3 cm; Wt 94.4 kg
[2022-03-18] MEDS ORDERED: KETOROLAC 30 MG/ML 1ML VIAL IM ONE (12:35)
[2022-03-18] MEDS ORDERED: predniSONE 20 MG TAB PO ONE (12:35)
[2022-03-18] MEDS ORDERED: LIDOCAINE 5% (LIDODERM) PATCH TD ONE (12:35)
[2022-03-18] MEDS ORDERED: ACETAMINOPHEN 500 MG TAB PO ONE (12:35)
[2022-03-18] MEDS ORDERED: CYCLOBENZAPRINE 10MG TABLET PO ONE (12:35)
[2022-03-18] MEDS ORDERED: CYCL5TAB PO (14:13)
[2022-03-18] MEDS ORDERED: LIDO5DIS41 TOP (14:13)
[2022-03-18] MEDS ORDERED: IBUP80TA PO (14:13)
[2022-03-18 14:26] VITALS: BP 152/98
== END 2022-03-18 14:25 | disposition home or self-care (01) ==
LOC: M ED 09:38
DX: S39.012A Strain of muscle, fascia and tendon of lower back, initial encounter (principal); X50.0XXA Overexertion from strenuous movement or load, initial encounter; Y99.0 Civilian activity done for income or pay
CPT/HCPCS: 72110; 96372; 99283; J1885; J7512